=== PATIENT | male | born 1940 | race Caucasian/White ===

== ENCOUNTER 2016-09-08 08:45 | Inpatient (IN) | payer OTHER ==
[~2016-09-08] VITALS: Ht 177.8 cm; Wt 104.7 kg
[~2016-09-08 08:45] MED LIST: AMIO200T4 PO; ASPI81TA28 PO; DORZ1SOL6 OPB; HMLI SQ; INSDGI SC; METO-217 PO; SULF800T23 PO; WARF5TAB7 PO; [UNRECOGNIZED DRUG - CODE] PO
[2016-09-08] MEDS ORDERED: LEVO50TA6 PO (09:21)
[2016-09-08] MEDS ORDERED: PROC1TAB5 PO (09:21)
[2016-09-08] MEDS ORDERED: [UNRECOGNIZED DRUG - CODE] PO (09:21)
[2016-09-08] MEDS ORDERED: SODIUM CHLORIDE 0.9% 1000ML 1,000 ML IV STA (09:29)
[2016-09-08] MEDS ORDERED: ONDANSETRON INJ 2 MG/ML 2 ML VIAL IV STA (09:29)
--- NOTE | 2016-09-08 10:04 | EMERGENCY ROOM VISIT NOTE ---
History Report prepared by Aditya: Alissa Marc Under the Supervision of: Dr. Noé Nelson M.D. First contact with patient: 08:57 Chief Complaint: ILLNESS Stated Complaint: BRUISING AND LACERATION TO RT. ARM History of Present Illness The patient is a 76 year old male who presents to the Emergency Room with complaints of persistent bleeding from a scratch on his arm starting this morning. The patient scratched his arm this morning and his was concerned about the bleeding. There is also a bruise on the back of his arm that was concerning to her. He has been on Coumadin for A fib in the past, but was taken off of it 2 weeks ago for a wound vac. He has been taking Coumadin on occasion and his INR has been fluctuating between 1 - 9.1. The last time his INR was checked it was 9.1. He has nausea, vomiting, and diarrhea which he attributes to his leukemia medications. He is taking medications for his nausea. He denies any SOB, fever, or abdominal pain. Source of History: patient Onset: this morning Position: arm (right) Quality: other (bleeding) Timing: other (persistent) Associated Symptoms: + diarrhea, + nausea, + vomiting, No SOB, No abdominal pain, No fevers Review of Systems See HPI for pertinent positives & negatives. A total of 10 systems reviewed and were otherwise negative. Past Medical & Surgical Medical Problems: (1) Chronic diastolic CHF (congestive heart failure) (2) CKD (chronic kidney disease), stage III (3) CML (chronic myelocytic leukemia) (4) COPD, severe (5) Diabetes mellitus (6) HTN (hypertension) (7) SABIHA (obstructive sleep apnea) (8) Paroxysmal atrial flutter Surgical Problems: (1) H/O colonoscopy (2) H/O eye surgery (3) History of total right hip replacement Family History Cancer Diabetes mellitus Social History Smoking Status: Never Smoker Alcohol Use: none Drug Use: none Marital Status: in relationship Housing Status: lives with family Occupation Status: retired Current/Historical Medications Scheduled Amiodarone Hcl (Cordarone), 200 MG PO QD Aspirin (Aspirin Ec), 81 MG PO QAM Dorzolamide Hcl-Timolol Maleat (Cosopt Oph), 1 DROPS OPB BID Insulin Glargine (Lantus), 7 UNITS SC QAM Insulin Lispro (Humalog), 7 UNITS SQ UD Levothyroxine Sodium (Levothyroxine Sodium), 1 TAB PO DAILY Metoprolol Succinate (Toprol Xl), 50 MG PO BID Ponatinib HCl (Iclusig), 30 MG PO QAM Prochlorperazine Maleate (Compazine), 10 MG PO Q6H Sulfa/Trimethoprim (Bactrim Ds 800MG/160MG), 1 TAB PO BID Warfarin Sod (Jantoven), 2.5 MG PO QAM Allergies Coded Allergies: No Known Allergies (Verified , 09/08/16) Physical Exam Vital Signs Date Time Temp Pulse Resp B/P Pulse Ox O2 Delivery O2 Flow Rate FiO2 09/08/16 13:07 52 15 141/63 98 09/08/16 11:50 55 14 155/61 98 Room Air 09/08/16 11:30 98 Room Air 09/08/16 10:33 57 18 151/60 95 Room Air 09/08/16 09:05 95 Room Air 09/08/16 08:55 36.6 57 20 121/68 98 Room Air Physical Exam GENERAL: Patient is in no acute distress. HEENT: No acute trauma, normocephalic atraumatic, mucous membranes dry, no nasal congestion, no scleral icterus. NECK: No stridor, no adenopathy, no meningismus, trachea is midline. LUNGS: Clear to auscultation bilaterally, no wheeze, no rhonchi, breath sounds equal. HEART: 3/6 systolic murmur with regular rate and rhythm. ABDOMEN: Soft, nontender, bowel sounds positive, no hernias, no peritonitis. EXTREMITIES: Dressed wound on anterior right lower extremity without signs of cellulitis. No edema in either lower extremity. Small very superficial 1 cm laceration to the right lateral bicep, no active bleeding. Older contusion noted to the right proximal arm/bicep. NEUROLOGIC: Oriented x 3, no acute motor or sensory deficits, no focal weakness. SKIN: No rash, no jaundice, no diaphoresis. Medical Decision & Procedures Laboratory Results 09/08/16 09:40 09/08/16 09:40 Test 09/08/16 09:40 Red Blood Count 3.84 M/uL (4.7-6.1) Mean Corpuscular Volume 80.2 fL (80-100) Mean Corpuscular Hemoglobin 27.1 pg (25-34) Mean Corpuscular Hemoglobin Concent 33.8 g/dl (32-36) RDW Standard Deviation 56.1 fL (36.4-46.3) RDW Coefficient of Variation 19.3 % (11.5-14.5) Platelet Estimate DECREASED Prothrombin Time > 100.0 SECONDS Prothromb Time International Ratio > 8.0 (0.9-1.1) Activated Partial Thromboplast Time > 300.0 SECONDS Partial Thromboplastin Ratio > 11.0 Anion Gap 8.0 mmol/L (3-11) Est Creatinine Clear Calc Drug Dose 38.9 ml/min Estimated GFR () 38.8 Estimated GFR (Non- 33.5 BUN/Creatinine Ratio 16.6 (10-20) Osmolality 281 mOsm/kg (280-300) Calcium Level 7.4 mg/dl (8.5-10.1) Magnesium Level 3.1 mg/dl (1.8-2.4) Total Bilirubin 1.8 mg/dl (0.2-1) Direct Bilirubin 1.4 mg/dl (0-0.2) Aspartate Amino Transf (AST/SGOT) 28 U/L (15-37) Alanine Aminotransferase (ALT/SGPT) 25 U/L (12-78) Alkaline Phosphatase 414 U/L (45-117) Total Protein 6.0 gm/dl (6.4-8.2) Albumin 2.5 gm/dl (3.4-5.0) Laboratory results reviewed by me. Medications Administered Medications (Trade) Dose Ordered Sig/Kristopher Route Start Time Stop Time Status Last Admin Dose Admin Ondansetron HCl 4 mg 4 mg NOW STAT IV 09/08/16 09:29 09/08/16 09:31 DC 09/08/16 09:52 4 MG Sodium Chloride (Nss 1000ml) 1,000 ml @ 999 mls/hr Q1H1M STAT IV 09/08/16 09:29 09/08/16 10:29 DC 09/08/16 09:50 999 MLS/HR Phytonadione (Mephyton Tab) 10 mg NOW STAT PO 09/08/16 10:55 09/08/16 10:57 DC 09/08/16 11:49 10 MG ECG Indication: bradycardia Rate (beats per minute): 57 Rhythm: sinus bradycardia (with significant baseline artifact) Findings: nonspecific-ST abn, no acute ischemic change, no ectopy ED Course 0856: At this time the patient was evaluated by the medical student. The students findings were discussed with me. We discussed a possible treatment plan and differential diagnoses for the patient. 0926: The patient was evaluated in room B12. A complete history and physical exam was performed. 0929: NSS 1000 ml @ 999 mls/hr IV, Zofran Inj 4 mg IV. 1055: Phytonadione 10 mg PO. 1102: Upon reexamination the patient is resting comfortably. I discussed results and treatment plan with the patient. He verbalizes agreement and understanding. The patient will be evaluated for further management. 1108: I discussed the patient's case with PAMELA Torres group. The patient will be evaluated for further management. Medical Decision Differential diagnoses: dehydration, coagulopathy, anemia, electrolyte imbalance , liver failure, infection, cellulitis. There is no leukocytosis. The patient is mildly anemic but this is baseline for him. Platelet count is low in the 70s. Renal panel testing shows some dehydration/renal insufficiency. There were some mild elevations to a few of the liver enzymes. The patient had a significant coagulopathy with an INR greater than 8. EKG showed a sinus bradycardia, no acute ischemia. The patient presents with bleeding and easy bruising. His INR is quite high, he has been vomiting and having diarrhea despite medications prescribed for him at home. He did seem clinically dehydrated. I suspect the difficulty with his INR has to do with his poor appetite. I do think admission/observation is warranted. He is dehydrated, he needs his INR corrected, his platelet count will need to be watched to make sure it doesn' t drop further. Right now, he is not actively bleeding. The patient received IV saline, IV Zofran and oral vitamin K. I spoke to the patient and his family. I spoke with case management. The on-call hospitalist was consulted. Consults Time Called: 1104 Consulting Physician: [facility] Returned Call: [phone] I discussed the patient's case with her. The patient will be evaluated for further management. Impression Primary Impression: Coagulopathy Additional Impressions: Thrombocytopenia Dehydration Vomiting Scribe Attestation The scribe's documentation has been prepared under my direction and personally reviewed by me in its entirety. I confirm that the note above accurately reflects all work, treatment, procedures, and medical decision making performed by me. Departure Information Dispostion Being Evaluated By Hospitalist Referrals Lyndon Farah III, M.D. (PCP) Patient Instructions My [facility] Problem Qualifiers
[2016-09-08 10:07] LABS: BUN/CREATININE RATIO 16.6 (10-20); CALCIUM 7.4 mg/dl (8.5-10.1); CREATININE 1.9 mg/dl (0.60-1.40); POTASSIUM 4.6 mmol/L (3.5-5.1)
[2016-09-08 10:27] LABS: PROTHROMBIN TIME (PATIENT) > 100.0 SECONDS (9.0-12.0)
[2016-09-08 10:36] LABS: HEMATOCRIT 30.8 % (42-52); MEAN CELL VOLUME 80.2 fL (80-100); MEAN CORPUSCULAR HEMOGLOBIN 27.1 pg (25-34); MEAN CORPUSCULAR HGB CONC 33.8 g/dl (32-36); PLATELET COUNT 73 K/uL (130-400); PLT ESTIMATE DECREASED; RED BLOOD COUNT 3.84 M/uL (4.7-6.1); WHITE BLOOD COUNT 4.27 K/uL (4.8-10.8)
[2016-09-08 10:43] LABS: INR > 8.0 (0.9-1.1); PARTIAL THROMBOPLASTIN RATIO > 11.0
[2016-09-08] MEDS ORDERED: PHYTONADIONE 5 MG TAB PO STA (10:55)
[2016-09-08 11:30] VITALS: O2SAT 98; BMI 29.2
[2016-09-08] MEDS ORDERED: ONDANSETRON INJ 2 MG/ML 2 ML VIAL IV PRN (12:00)
[2016-09-08] MEDS ORDERED: ACETAMINOPHEN 325 MG TAB PO PRN (12:00)
[2016-09-08] MEDS ORDERED: PROMETHAZINE HCL INJ 12.5 MG in SODIUM CHLORIDE 0.9% 50ML 50 ML IV PRN (12:00)
[2016-09-08] MEDS ORDERED: DEXTROSE 50% 50 ML SYR IV PRN (12:30)
[2016-09-08] MEDS ORDERED: GLUCAGON FOR INJ 1 MG VIAL SQ PRN (12:30)
[2016-09-08] MEDS ORDERED: GLUCOSE 40% GEL 15 GM TUBE PO PRN (12:30)
[2016-09-08] MEDS ORDERED: GLUCOSE 10 TABS/TUBE PO PRN (12:30)
--- NOTE | 2016-09-08 12:32 | History and Physical ---
History & Physical Date & Time of Service: Sep 08, 2016 at 12:01 Chief Complaint: Bruising And Laceration To Rt. Arm Primary Care Physician: Lyndon Farah III, M.D. History of Present Illness Source: patient, family, clinic records, hospital records Patient seen and examined. 76 year old male with PMHx of CML on chemo po, CKD stgae 3, DM2, Afib on coumadin, and RLE diabetic wound presents to the ED complaining of laceration to right arm prior to arrival. Patient reports scratching his arm this morning and it began to bleed. It took a while to stop the bleeding with pressure but the bleeding did stop. The patient then noticed bruising on the right arm. He called the Coumadin clinic and they referred the patient to the ED. The patient has been having difficult times maintaining his INR between 2-3. He has been on Bactrim for about a month for his diabetic wound. He also is receiving chemo and has had significant nausea, vomiting and diarrhea also thought to be contributing to the poor control of INRs. Recently INR was as high as 9.1 Coumadin has been on hold for 4 days. He reports his urine looked red today. He has not been able to keep down much po but has been taking his medications. He denies fevers, chills, URI symptoms, chest pain, SOB , calf pain and edema. He follows with the wound clinic MWF. In the ED VS were stable, Hgb was 10, Platelets 73, INR >8, Crea 1.9 from baseline around 1.6, Na + 131. He received IVFs, zofran and po Vitamin K. He is resting comfortably. He will be admitted for further workup and treatment. Past Medical/Surgical History Medical Problems: (1) Chronic diastolic CHF (congestive heart failure) Status: Chronic (2) CKD (chronic kidney disease), stage III Status: Chronic (3) CML (chronic myelocytic leukemia) Status: Chronic (4) COPD, severe Permanent Comment: PFT - severe obstructive airway disease Status: Chronic (5) Diabetes mellitus Status: Chronic (6) HTN (hypertension) Status: Chronic (7) SABIHA (obstructive sleep apnea) Status: Chronic (8) Paroxysmal atrial flutter Status: Chronic Surgical Problems: (1) H/O colonoscopy Status: Chronic (2) H/O eye surgery Status: Chronic (3) History of total right hip replacement Status: Resolved Family History Cancer Diabetes mellitus Social History Smoking Status: Never Smoker Drug Use: none Marital Status: in relationship Housing status: lives with significant other Occupational Status: retired Immunizations History of Influenza Vaccine: Yes Influenza Vaccine Date: Mar 30, 2014 History of Tetanus Vaccine?: Yes Tetanus Immunization Date: Oct 01, 2012 History of Pneumococcal: Yes Pneumococcal Date: May 04, 2014 Multi-Drug Resistant Organisms History of MDRO: Yes Type of MDRO: MRSA Allergies Coded Allergies: No Known Allergies (Verified , 09/08/16) Home Medications Scheduled Amiodarone Hcl (Cordarone), 200 MG PO QD Aspirin (Aspirin Ec), 81 MG PO QAM Dorzolamide Hcl-Timolol Maleat (Cosopt Oph), 1 DROPS OPB BID Insulin Glargine (Lantus), 7 UNITS SC QAM Insulin Lispro (Humalog), 7 UNITS SQ UD Levothyroxine Sodium (Levothyroxine Sodium), 1 TAB PO DAILY Metoprolol Succinate (Toprol Xl), 50 MG PO BID Ponatinib HCl (Iclusig), 30 MG PO QAM Prochlorperazine Maleate (Compazine), 10 MG PO Q6H Sulfa/Trimethoprim (Bactrim Ds 800MG/160MG), 1 TAB PO BID Warfarin Sod (Jantoven), 2.5 MG PO QAM Review of Systems See above for pertinent positives & negatives. A total of 10 systems reviewed and were otherwise negative. Physical Exam Vital Signs Date Time Temp Pulse Resp B/P Pulse Ox O2 Delivery O2 Flow Rate FiO2 09/08/16 11:50 55 14 155/61 98 Room Air 09/08/16 10:33 57 18 151/60 95 Room Air 09/08/16 09:05 95 Room Air 09/08/16 08:55 36.6 57 20 121/68 98 Room Air General Appearance: + pertinent finding (WD/WN 76 year old male lying in bed in NAD with family at bedside ) Head: normocephalic, atraumatic Eyes: PERRL, EOMI, sclerae normal ENT: hearing grossly normal, pharynx normal Neck: supple, no JVD Respiratory/Chest: chest non-tender, lungs clear, normal breath sounds, no respiratory distress, no accessory muscle use Cardiovascular: regular rate, rhythm, no edema, no gallop, no JVD, normal peripheral pulses, + systolic murmur (+3) Abdomen/GI: normal bowel sounds, non tender, soft Extremities/Musculoskelatal: no calf tenderness, normal capillary refill, no pedal edema, + pertinent finding (small skin tear to right arm with ecchymosis to posterior right arm, right leg with dressing i/c/d) Neurologic/Psych: alert, oriented x 3, + pertinent finding (no focal deficits ) Skin: normal color, warm/dry, no rash Lymphatic: no adenopathy Diagnostics Laboratory Results Results Past 24 Hours Test 09/08/16 09:40 Range/Units White Blood Count 4.27 4.8-10.8 K/uL Red Blood Count 3.84 4.7-6.1 M/uL Hemoglobin 10.4 14.0-18.0 g/dL Hematocrit 30.8 42-52 % Mean Corpuscular Volume 80.2 80-100 fL Mean Corpuscular Hemoglobin 27.1 25-34 pg Mean Corpuscular Hemoglobin Concent 33.8 32-36 g/dl RDW Standard Deviation 56.1 36.4-46.3 fL RDW Coefficient of Variation 19.3 11.5-14.5 % Platelet Count 73 130-400 K/uL Platelet Estimate DECREASED Prothrombin Time > 100.0 9.0-12.0 SECONDS Prothromb Time International Ratio > 8.0 0.9-1.1 Activated Partial Thromboplast Time > 300.0 21.0-31.0 SECONDS Partial Thromboplastin Ratio > 11.0 Sodium Level 131 136-145 mmol/L Potassium Level 4.6 3.5-5.1 mmol/L Chloride Level 105 98-107 mmol/L Carbon Dioxide Level 18 21-32 mmol/L Anion Gap 8.0 3-11 mmol/L Blood Urea Nitrogen 32 7-18 mg/dl Creatinine 1.90 0.60-1.40 mg/dl Est Creatinine Clear Calc Drug Dose 38.9 ml/min Estimated GFR () 38.8 Estimated GFR (Non- 33.5 BUN/Creatinine Ratio 16.6 10-20 Random Glucose 131 70-99 mg/dl Calcium Level 7.4 8.5-10.1 mg/dl Magnesium Level 3.1 1.8-2.4 mg/dl Total Bilirubin 1.8 0.2-1 mg/dl Direct Bilirubin 1.4 0-0.2 mg/dl Aspartate Amino Transf (AST/SGOT) 28 15-37 U/L Alanine Aminotransferase (ALT/SGPT) 25 12-78 U/L Alkaline Phosphatase 414 45-117 U/L Total Protein 6.0 6.4-8.2 gm/dl Albumin 2.5 3.4-5.0 gm/dl EKG Sinus Bradycardia 57 BPM, LAD QTc 418 Impression Assessment and Plan 76 year old male presents to the ED complaining of bleeding laceration and bruising prior to arrival. CLINICAL DEHYDRATION -Admit to med/surg -likely secondary to nausea, vomiting, and diarrhea from chemo -IVF hydration -antiemetics -check c.diff -CBC, PRP,Mg in AM SUPRATHERAPUTIC INR -INR >8 -likely secondary to Bactrim use, poor po intake -10mg PO Vitamin K in ED -reports some hematuria this AM, check UA -monitor INR daily HYPONATREMIA -mild 131 -likely d/t dehydration -IVFs -urine lytes, osm pending -follow PRP DIABETIC RIGHT LEG WOUND -follows with Wound clinic, dressing changed by ED physician today, no surrounding cellulitis -Continue Bactrim -wound care nurse consult placed CHRONIC MYELOID LEUKEMIA -follows with Heme/onc in [place] -on Ponatinib daily THROMBOCYTOPENIA -possibly secondary to chemo -Took Aspirin this morning -will hold for now and readdress in AM following repeat CBC ATRIAL FIBRILLATION -in Sinus Rhythm -continue BB, amiodarone -hold Coumadin CKD STAGE 3 -Crea 1.9 has been running high for several months, baseline closer to 1.6 -IVF hydration IDDM -Update A1c -SSI coverage -BSG AC HS HYPOTHYROIDISM -continue Synthroid HTN -stable -continue BB CODE STATUS: LEVEL 5 DNR per my discussion with the patient DVT PROPHYLAXIS: INR currently > 8 DISPO:In my clinical judgment this beneficiary meets acute admission criteria, established by CMS, that includes being hospitalized through two midnights. Discharge planning eval Patient seen in collaboration with Dr. Sousa I have seen and examined the patient and agree with the assessment and plan as stated above. Will stop Bactrim at this time as patient is afebrile and wound appears good with minimal surrounding erythema, and patient has had >1 month of stated abx. Wound care nurse contacted. Supratherapeutic INR seecondary to abx use, given vitamin K in the ER. Trend INR in am. Cont chemotherapy for CML. Contact precautions for MRSA in wound. Clinical dehydration and labwork to support this--IVF and will reassess in am. Scratch from this morning is not currently bleeding. Otherwise, cont with plan above. Ely Sousa, DO Hospitalist Level of Care Med/Surg Resuscitation Status DO NOT RESUSCITATE VTE Prophylaxis VTE Risk Assessment Done? Y/N: Yes Risk Level: Moderate Given or contraindicated: Contraindicated Social Service Consult Cancer Patient Under [place]
[2016-09-08 14:20] VITALS: BP 149/77; PULSE 55; TEMP 36.5; O2SAT 98
[2016-09-08] MEDS: SODIUM CHLORIDE 0.9% 1000ML 1,000 ML IV SCH ×2 (14:50→21:52)
[2016-09-08 16:10] VITALS: O2SAT 98
[2016-09-08 16:38] LABS: MANUAL MICROSCOPIC REQUIRED? NO; REVIEW REQ? YES; URINE APPEARANCE TURBID (CLEAR); URINE COLOR DK YELLOW; URINE NITRITE POS (NEG); UROBILINOGEN NEG (NEG); ZZUR CULT IF INDIC CLEAN CATCH NO
[2016-09-08 16:40] LABS: URINE BILIRUBIN NEG (NEG)
[2016-09-08] MEDS: INSULIN ASPART 100 UNITS/ML 3 ML PEN SC SCH ×2 (18:12→21:00)
[2016-09-08 19:27] VITALS: BP 150/78; PULSE 52; TEMP 36.3; O2SAT 97
[2016-09-08] MEDS ORDERED: SULFAMETHOXAZOLE/TRIMETHOPRIM DS 800/160MG TAB PO SCH (20:00)
[2016-09-08] MEDS: DORZOLAMIDE/TIMOLOL 22.3/6.8MG/ML 10 ML BTL OPB SCH (21:53)
[2016-09-08] MEDS: METOPROLOL SUCC 50MG EXT REL TAB PO SCH (21:53)
[2016-09-08 21:54] VITALS: PULSE 64
[2016-09-08 22:12] VITALS: BP 150/78; PULSE 56; TEMP 36.8; O2SAT 96
[2016-09-09] VITALS (8 sets, daily range): BP systolic 122–180; BP diastolic 63–84; PULSE 58–71; TEMP 36.2–36.8; O2SAT 94–100; BMI 30.5
[2016-09-09] MEDS: LEVOTHYROXINE 50 MCG TAB PO SCH (05:26)
[2016-09-09] MEDS: SODIUM CHLORIDE 0.9% 1000ML 1,000 ML IV SCH ×3 (05:27→22:36)
[2016-09-09 07:33] LABS: HEMATOCRIT 32.5 % (42-52); MEAN CELL VOLUME 82.5 fL (80-100); MEAN CORPUSCULAR HEMOGLOBIN 26.9 pg (25-34); MEAN CORPUSCULAR HGB CONC 32.6 g/dl (32-36); RED BLOOD COUNT 3.94 M/uL (4.7-6.1); WHITE BLOOD COUNT 3.62 K/uL (4.8-10.8)
[2016-09-09 07:45] LABS: MEAN PLATELET VOLUME 10.7 fL (7.4-10.4); PLATELET COUNT 78 K/uL (130-400)
[2016-09-09 07:49] LABS: PARTIAL THROMBOPLASTIN RATIO 3.2; PROTHROMBIN TIME (PATIENT) 33.3 SECONDS (9.0-12.0)
[2016-09-09 07:56] LABS: COMPLETE YES; EOS % 5.2 %; IG% 0.6 %; LARGE PLATELETS 1+; LYMPH % 22.9 %; LYMPH ABS # 0.83 K/uL (1.2-3.4); MONO % 9.4 %; NEUT % 61.9 %
[2016-09-09 08:02] LABS: BUN/CREATININE RATIO 16.9 (10-20); CALCIUM 7.4 mg/dl (8.5-10.1); CREATININE 1.7 mg/dl (0.60-1.40); MAGNESIUM 2.8 mg/dl (1.8-2.4); POTASSIUM 4.6 mmol/L (3.5-5.1)
[2016-09-09 08:13] LABS: ALB/GLOB RATIO 0.7 (0.9-2)
[2016-09-09] MEDS: DORZOLAMIDE/TIMOLOL 22.3/6.8MG/ML 10 ML BTL OPB SCH ×2 (09:14→21:35)
[2016-09-09] MEDS: METOPROLOL SUCC 50MG EXT REL TAB PO SCH ×2 (09:15→21:35)
[2016-09-09] MEDS: INSULIN ASPART 100 UNITS/ML 3 ML PEN SC SCH ×4 (09:16→21:35)
[2016-09-09] MEDS: AMIODARONE 200 MG TAB PO SCH (09:16)
[2016-09-09] MEDS: INSULIN GLARGINE SOLOSTAR 100 UNITS/ML 3 ML PEN SC SCH (09:20)
[2016-09-09 09:29] LABS: ESTIMATED AVERAGE GLUCOSE 114 mg/dl; HA1C FLAG Normal (Normal)
[2016-09-09] MEDS: ICLUSIG PO SCH (10:56)
[2016-09-09] MEDS: BOOST VANILLA PO SCH ×4 (13:37→17:39)
--- NOTE | 2016-09-09 16:12 | Progress Note ---
Internal Med Progress Note Date of Service: Sep 09, 2016. Provider Documentation: SUBJECTIVE: Patient is lying in his bed and does not seem to be in acute distress. Still has intermittent nausea but no vomiting. Some epigastric discomfort. OBJECTIVE: Vital Signs-as noted below Examination: General Appearance: WD/WN 76 year old male lying in bed in NAD with at bedside. Head: normocephalic, atraumatic Eyes: PERRL, EOMI, sclerae normal ENT: hearing grossly normal, pharynx normal Neck: supple, midline trachea, no JVD Respiratory/Chest: chest non-tender, lungs clear, normal breath sounds, no respiratory distress, no accessory muscle use Cardiovascular: regular rate, rhythm, no edema, no gallop, no JVD, normal peripheral pulses, 3+ systolic murmur Abdomen/GI: normal bowel sounds,some discomfort on palpating epigastrium, non tender, soft Extremities/Musculoskeletal: no calf tenderness, normal capillary refill, no pedal edema, small skin tear to right arm with ecchymosis to posterior right arm , right leg with dressing. Neurologic/Psych: alert, oriented x 3, No focal deficits Skin: normal color, warm/dry, no rash Lymphatic: no adenopathy Lab data as noted below. ASSESSMENT & PLAN: Acute Kidney Injury on CKD Stage III: Resolving. Caused by dehydration secondary to nausea, vomiting, and diarrhea from chemo Baseline Creatinine around 1.6 -Continue IVF hydration -antiemetics as needed -C.diff is negative -Follow electrolytes. -Started Full liquid diet -Avoid any Nephrotoxin. Supra-therapeutic INR: INR >8 upon admission. Likely secondary to Bactrim use, poor oral intake. Resolving now. -10mg PO Vitamin K given in ED -Monitor INR daily Hyponatremia: Resolving. Likely due to poor intake. -Continue IVFs Thrombocytopenia: Likely secondary to chemo -Holding Aspirin for now Diabetic Right Leg Wound: Follows with Wound clinic, dressing changed by ED physician today, no surrounding cellulitis -Stopped Bactrim -Wound care nurse consult placed Chronic Myeloid Leukemia: Follows with Heme/onc in [place] -on Ponatinib daily History Atrial Fibrillation: In NSR now. -Continue B-Lani, Amiodarone -Hold Coumadin Insulin Dependent Diabetes: Stable. HbA1c is 5.6. -SSI coverage -BSG AC HS Hypothyroidism: Continue Synthroid History Hypertension: Stable -continue home medications. Code Status: LEVEL 5 DNR per my discussion with the patient upon admission. DVT Prophylaxis: Elevated INR Disposition: Discharge home once is clinically stable. Vital Signs: Date Time Temp Pulse Resp B/P Pulse Ox O2 Delivery O2 Flow Rate FiO2 09/09/16 11:52 36.8 58 18 180/81 99 09/09/16 08:45 Room Air 09/09/16 07:21 36.2 62 18 140/73 96 Room Air 09/09/16 05:27 36.8 62 20 156/84 96 Room Air 09/09/16 00:30 98 Room Air 09/08/16 22:12 36.8 56 20 150/78 96 Room Air 09/08/16 21:54 64 09/08/16 19:27 36.3 52 20 150/78 97 Room Air Lab Results: Results Past 24 Hours Test 09/08/16 20:54 09/09/16 06:51 09/09/16 07:41 09/09/16 11:49 Range/Units Bedside Glucose 125 102 143 70-99 mg/dl White Blood Count 3.62 4.8-10.8 K/uL Red Blood Count 3.94 4.7-6.1 M/uL Hemoglobin 10.6 14.0-18.0 g/dL Hematocrit 32.5 42-52 % Mean Corpuscular Volume 82.5 80-100 fL Mean Corpuscular Hemoglobin 26.9 25-34 pg Mean Corpuscular Hemoglobin Concent 32.6 32-36 g/dl Platelet Count 78 130-400 K/uL Mean Platelet Volume 10.7 7.4-10.4 fL Neutrophils (%) (Auto) 61.9 % Lymphocytes (%) (Auto) 22.9 % Monocytes (%) (Auto) 9.4 % Eosinophils (%) (Auto) 5.2 % Basophils (%) (Auto) 0.0 % Neutrophils # (Auto) 2.24 1.4-6.5 K/uL Lymphocytes # (Auto) 0.83 1.2-3.4 K/uL Monocytes # (Auto) 0.34 0.11-0.59 K/uL Eosinophils # (Auto) 0.19 0-0.5 K/uL Basophils # (Auto) 0.00 0-0.2 K/uL RDW Standard Deviation 59.1 36.4-46.3 fL RDW Coefficient of Variation 19.7 11.5-14.5 % Immature Granulocyte % (Auto) 0.6 % Immature Granulocyte # (Auto) 0.02 0.00-0.02 K/uL Large Platelets 1+ Prothrombin Time 33.3 9.0-12.0 SECONDS Prothromb Time International Ratio 3.0 0.9-1.1 Activated Partial Thromboplast Time 82.6 21.0-31.0 SECONDS Partial Thromboplastin Ratio 3.2 Sodium Level 135 136-145 mmol/L Potassium Level 4.6 3.5-5.1 mmol/L Chloride Level 108 98-107 mmol/L Carbon Dioxide Level 17 21-32 mmol/L Anion Gap 10.0 3-11 mmol/L Blood Urea Nitrogen 29 7-18 mg/dl Creatinine 1.70 0.60-1.40 mg/dl Est Creatinine Clear Calc Drug Dose 43.0 ml/min Estimated GFR () 44.4 Estimated GFR (Non- 38.3 BUN/Creatinine Ratio 16.9 10-20 Random Glucose 105 70-99 mg/dl Estimated Average Glucose 114 mg/dl Hemoglobin A1c 5.6 4.5-5.6 % Calcium Level 7.4 8.5-10.1 mg/dl Magnesium Level 2.8 1.8-2.4 mg/dl Total Bilirubin 3.6 0.2-1 mg/dl Aspartate Amino Transf (AST/SGOT) 27 15-37 U/L Alanine Aminotransferase (ALT/SGPT) 23 12-78 U/L Alkaline Phosphatase 368 45-117 U/L Total Protein 5.8 6.4-8.2 gm/dl Albumin 2.3 3.4-5.0 gm/dl Globulin 3.5 2.5-4.0 gm/dl Albumin/Globulin Ratio 0.7 0.9-2 Microbiology Results 09/09/16 C.difficile Toxin B Gene (PCR) - Final, Complete No C. difficile toxin B gene detected
[2016-09-10] VITALS (7 sets, daily range): BP systolic 122–156; BP diastolic 68–78; PULSE 62–91; TEMP 36.3–37.3; O2SAT 96–99; Ht 177.8 cm; Wt 104.7 kg
[2016-09-10 05:49] LABS: HEMATOCRIT 28.2 % (42-52); MEAN CELL VOLUME 80.1 fL (80-100); MEAN CORPUSCULAR HGB CONC 33.7 g/dl (32-36); RED BLOOD COUNT 3.52 M/uL (4.7-6.1); WHITE BLOOD COUNT 2.85 K/uL (4.8-10.8)
[2016-09-10 06:05] LABS: MEAN PLATELET VOLUME 10.4 fL (7.4-10.4); PLATELET COUNT 69 K/uL (130-400)
[2016-09-10 06:09] LABS: PROTHROMBIN TIME (PATIENT) 49.6 SECONDS (9.0-12.0)
[2016-09-10] MEDS: LEVOTHYROXINE 50 MCG TAB PO SCH (06:15)
[2016-09-10 06:23] LABS: BUN/CREATININE RATIO 15.5 (10-20); CALCIUM 7.1 mg/dl (8.5-10.1); CREATININE 1.7 mg/dl (0.60-1.40); POTASSIUM 4.3 mmol/L (3.5-5.1)
[2016-09-10 06:36] LABS: INR 4.4 (0.9-1.1)
[2016-09-10 06:49] LABS: COMPLETE YES; EOSINOPHIL % 4.4 %; LARGE GRANULAR LYMPH ABSOLUTE 0.88 K/uL; LYMPH ABS # 0.25 K/uL (1.2-3.4); LYMPHOCYTE % 8.8 %; NEUTROPHILS % 37.2 %
[2016-09-10] MEDS: BOOST VANILLA PO SCH ×6 (08:31→17:35)
[2016-09-10] MEDS: DORZOLAMIDE/TIMOLOL 22.3/6.8MG/ML 10 ML BTL OPB SCH ×2 (08:31→20:31)
[2016-09-10] MEDS: ICLUSIG PO SCH (08:32)
[2016-09-10] MEDS: INSULIN ASPART 100 UNITS/ML 3 ML PEN SC SCH ×4 (08:32→20:33)
[2016-09-10] MEDS: METOPROLOL SUCC 50MG EXT REL TAB PO SCH ×2 (08:32→20:32)
[2016-09-10] MEDS: AMIODARONE 200 MG TAB PO SCH (08:32)
[2016-09-10] MEDS: SODIUM CHLORIDE 0.9% 1000ML 1,000 ML IV SCH ×2 (08:33→20:33)
[2016-09-10] MEDS: INSULIN GLARGINE SOLOSTAR 100 UNITS/ML 3 ML PEN SC SCH (08:34)
[2016-09-10] MEDS ORDERED: NURSING DECISION MEDICATION ORDER SCH (11:45)
[2016-09-10] MEDS ORDERED: EUCERIN CR 120 GM JAR EXT PRN (12:00)
[2016-09-10] MEDS ORDERED: PHYTONADIONE 5 MG TAB PO STA (13:00)
--- NOTE | 2016-09-10 13:03 | Progress Note ---
Internal Med Progress Note Date of Service: Sep 10, 2016. Provider Documentation: SUBJECTIVE: Patient is lying in his bed and does not seem to be in acute distress. Still has intermittent nausea but no vomiting. Epigastric discomfort has resolved. Tolerating full liquid diet so far. No other new change or complaint. OBJECTIVE: Vital Signs-as noted below Examination: General Appearance: WD/WN 76 year old male lying in bed in NAD with at bedside. Head: normocephalic, atraumatic Eyes: PERRL, EOMI, sclerae normal ENT: hearing grossly normal, pharynx normal Neck: supple, midline trachea, no JVD Respiratory/Chest: chest non-tender, lungs clear, normal breath sounds, no respiratory distress, no accessory muscle use Cardiovascular: regular rate, rhythm, no edema, no gallop, no JVD, normal peripheral pulses, 3+ systolic murmur Abdomen/GI: normal bowel sounds,some discomfort on palpating epigastrium, non tender, soft Extremities/Musculoskeletal: no calf tenderness, normal capillary refill, no pedal edema, small skin tear to right arm with ecchymosis to posterior right arm , right leg with dressing. Neurologic/Psych: alert, oriented x 3, No focal deficits Skin: normal color, warm/dry, no rash Lymphatic: no adenopathy Lab data as noted below. ASSESSMENT & PLAN: Acute Kidney Injury on CKD Stage III: Resolving. Caused by dehydration secondary to nausea, vomiting, and diarrhea from chemo Baseline Creatinine around 1.6 -Continue IVF hydration -antiemetics as needed -C.diff is negative -Follow electrolytes. -Started Full liquid diet -Avoid any Nephrotoxin. Supra-therapeutic INR: INR >8 upon admission. Likely secondary to Bactrim use, poor oral intake. Resolving now. -10mg PO Vitamin K given in ED and ordered Vitamin K 2.5 mg today. -Monitor INR daily Hyponatremia: Resolving. Likely due to poor intake. -Continue IVFs Thrombocytopenia: Likely secondary to chemo -Holding Aspirin for now Diabetic Right Leg Wound: Follows with Wound clinic, dressing changed by ED physician today, no surrounding cellulitis -Stopped Bactrim -Wound care nurse consult placed Chronic Myeloid Leukemia: Follows with Heme/onc in [place] -on Ponatinib daily History Atrial Fibrillation: In NSR now. -Continue B-Lani, Amiodarone -Hold Coumadin Insulin Dependent Diabetes: Stable. HbA1c is 5.6. -SSI coverage -BSG AC HS Hypothyroidism: Continue Synthroid History Hypertension: Stable -continue home medications. Code Status: LEVEL 5 DNR per my discussion with the patient upon admission. DVT Prophylaxis: Elevated INR Disposition: Discharge home once is clinically stable. Vital Signs: Date Time Temp Pulse Resp B/P Pulse Ox O2 Delivery O2 Flow Rate FiO2 09/10/16 12:06 36.8 62 20 147/70 99 Room Air 09/10/16 10:20 68 98 09/10/16 08:30 Room Air 09/10/16 07:23 36.8 64 18 128/78 97 Room Air 09/10/16 04:05 36.5 64 20 122/68 98 Room Air 09/09/16 23:45 Room Air 09/09/16 23:38 36.6 71 16 122/72 100 Room Air 09/09/16 19:24 36.2 68 18 129/69 98 Room Air 09/09/16 16:42 36.4 58 1 135/63 98 09/09/16 16:00 94 Room Air Lab Results: Results Past 24 Hours Test 09/09/16 16:47 09/09/16 20:03 09/10/16 05:25 09/10/16 08:07 Range/Units Bedside Glucose 164 131 123 70-99 mg/dl White Blood Count 2.85 4.8-10.8 K/uL Red Blood Count 3.52 4.7-6.1 M/uL Hemoglobin 9.5 14.0-18.0 g/dL Hematocrit 28.2 42-52 % Mean Corpuscular Volume 80.1 80-100 fL Mean Corpuscular Hemoglobin 27.0 25-34 pg Mean Corpuscular Hemoglobin Concent 33.7 32-36 g/dl Platelet Count 69 130-400 K/uL Mean Platelet Volume 10.4 7.4-10.4 fL RDW Standard Deviation 57.1 36.4-46.3 fL RDW Coefficient of Variation 19.7 11.5-14.5 % Neutrophils % (Manual) 37.2 % Lymphocytes % (Manual) 8.8 % Monocytes % (Manual) 18.6 % Eosinophils % (Manual) 4.4 % Neutrophils # (Manual) 1.06 1.4-6.5 K/uL Total Absolute Neutrophils 1.06 1.4-6.5 K/uL Lymphocytes # (Manual) 0.25 1.2-3.4 K/uL Total Absolute Lymphocytes 1.13 1.2-3.4 K/uL Monocytes # (Manual) 0.53 0.11-0.59 K/uL Eosinophils # (Manual) 0.13 0-0.5 K/uL Percent Large Granular Lymphocytes 31.0 % Absolute Large Granular Lymphocytes 0.88 K/uL Prothrombin Time 49.6 9.0-12.0 SECONDS Prothromb Time International Ratio 4.4 0.9-1.1 Sodium Level 135 136-145 mmol/L Potassium Level 4.3 3.5-5.1 mmol/L Chloride Level 110 98-107 mmol/L Carbon Dioxide Level 16 21-32 mmol/L Anion Gap 9.0 3-11 mmol/L Blood Urea Nitrogen 26 7-18 mg/dl Creatinine 1.70 0.60-1.40 mg/dl Est Creatinine Clear Calc Drug Dose 43.0 ml/min Estimated GFR () 44.4 Estimated GFR (Non- 38.3 BUN/Creatinine Ratio 15.5 10-20 Random Glucose 124 70-99 mg/dl Calcium Level 7.1 8.5-10.1 mg/dl Test 09/10/16 11:50 Range/Units Bedside Glucose 154 70-99 mg/dl
[2016-09-11] VITALS (17 sets, daily range): BP systolic 98–187; BP diastolic 50–94; PULSE 75–106; TEMP 36.4–36.8; O2SAT 87–100
--- NOTE | 2016-09-11 01:51 | Progress Note ---
Progress Note Date of Service Sep 11, 2016. Progress Note [employer] ATTENDING NOTE : responded to [facility] pt vomited few minuted back , then became hypoxic and unresponsive upon my arrival , pt was waking up -able to answer questions -says feels lousy , still nauseas coarse breathing sound hypoxic in RA in 80's improved to high 90's after 2 L 02 nC BSG 110 vitals stable Lungs -auscultation-diffuse rales in all lungs arnett pt continues to cough with audible crackles concern for aspiration /vasovagal episode leading to pre syncope due to vomiting stat portable Cxray ordered started on IV Zosyn ordered to transfer to PCU for close monitoring pt had one bowel movement -with dark red stool possible GI bleed due to coagulopathy NPO Protonix GTT stool for heme occult GI eval requested will update AM provider
[2016-09-11] MEDS ORDERED: PIPERACILL/TAZOBAC IV 3.375 GM in DEXTROSE 5% 100ML IV STA (01:54)
[2016-09-11] MEDS ORDERED: PIPERACILL/TAZOBAC IV 3.375 GM in DEXTROSE 5% 100ML 100 ML IV SCH (02:00)
[2016-09-11] MEDS ORDERED: PIPERACILL/TAZOBAC CONSULT ACTIVE PRN (02:00)
[2016-09-11] MEDS ORDERED: SODIUM CHLORIDE 0.9% 1000ML 1,000 ML IV SCH (02:00)
[2016-09-11] MEDS ORDERED: PANTOprazole INJ 80 MG in DEXTROSE 5% 100ML IV STA (02:01)
[2016-09-11 02:14] LABS: HEMATOCRIT 29.2 % (42-52); MEAN CELL VOLUME 81.6 fL (80-100); MEAN CORPUSCULAR HEMOGLOBIN 27.7 pg (25-34); RED BLOOD COUNT 3.58 M/uL (4.7-6.1); WHITE BLOOD COUNT 3.94 K/uL (4.8-10.8)
[2016-09-11 02:25] LABS: PROTHROMBIN TIME (PATIENT) > 100.0 SECONDS (9.0-12.0)
[2016-09-11 02:33] LABS: ARTERIAL BLD GAS O2 SATURATION 89.8 % (90-95); ARTERIAL BLOOD GAS BASE EXCESS -13.2 mEq/L (-9-1.8); ARTERIAL BLOOD GAS HCO3 12 mmol/L (19-24); ARTERIAL BLOOD GAS PO2 66 mm/Hg (80-95); ARTERIAL BLOOD GAS pH 7.28 (7.35-7.45)
[2016-09-11 02:34] LABS: ALLEN TEST POS (POS); O2 ADMINISTRATION 4 L
[2016-09-11 02:36] LABS: BUN/CREATININE RATIO 13.6 (10-20); CALCIUM 7.3 mg/dl (8.5-10.1); POTASSIUM 4.5 mmol/L (3.5-5.1)
[2016-09-11 02:42] LABS: MANUAL MICROSCOPIC REQUIRED? YES; REVIEW REQ? NO; SULFASALICYLIC ACID NEG (NEG); URINE APPEARANCE SLIGHTLY CLOUDY (CLEAR); URINE COLOR BROWN
[2016-09-11 02:49] LABS: URINE BACTERIA NEG (NEG); URINE RBC 0-4 /hpf (0-4)
[2016-09-11 02:50] LABS: ZZURINE CULT IF INDIC CATH YES
[2016-09-11 02:53] LABS: CKMB/CK RATIO 2.2 (0-3.0)
[2016-09-11 02:54] LABS: INR > 8.0 (0.9-1.1)
[2016-09-11 02:55] LABS: MEAN CORPUSCULAR HGB CONC 33.9 g/dl (32-36); PLATELET COUNT 94 K/uL (130-400); PLT ESTIMATE DECREASED
[2016-09-11] MEDS ORDERED: PHYTONADIONE 5 MG TAB PO STA (03:09)
[2016-09-11] MEDS: PANTOprazole INJ 40 MG in DEXTROSE 5% 100ML IV SCH ×5 (03:16→21:05)
[2016-09-11] MEDS: PIPERACILL/TAZOBAC IV 3.375 GM in DEXTROSE 5% 100ML IV SCH ×3 (05:36→21:05)
[2016-09-11 06:27] LABS: HEMATOCRIT 27.5 % (42-52)
[2016-09-11 06:44] LABS: PROTHROMBIN TIME (PATIENT) > 100.0 SECONDS (9.0-12.0)
[2016-09-11 06:47] LABS: INR > 8.0 (0.9-1.1)
--- NOTE | 2016-09-11 07:05 | Clinical Documentation Query ---
Dr. GAVIRIA [facility] : CLINICAL DOCUMENTATION QUERY Patient is a 76 year old male admitted with a supratherapeutic INR in the setting of Bactrim use and SYDNEY on CKD stage 3. Noted leukopenia, anemia, and thrombocytopenia. Thrombocytopenia explicitly linked to chemotherapy. As appropriate, consider clarification as suggested below to capture the severity of illness associated with this important clinical diagnosis. Thank you. In your clinical opinion is this patient being managed for: ( X ) Antineoplastic chemotherapy induced pancytopenia ( ) Other explanation of clinical findings (Please Explain) ( ) Unable to determine (Please Define) ( ) Need to Discuss ( ) Not Agree The medical record reflects the following clinical findings, treatment, and risk factors. Clinical Indicators: As above Treatment: Serial hematologic monitoring Risk Factors: Daily Ponatinib Please clarify and document your clinical opinion in the progress notes and discharge summary. Terms such as "probable", "suspected", "likely", "questionable", "possible", or "still to be ruled out" are acceptable. IF IN AGREEMENT, YOU MUST DOCUMENT ABOVE DIAGNOSTIC STATEMENT IN DAILY PROGRESS NOTES AND DISCHARGE SUMMARY. This document is not part of the patient's record. Thank You, Juan Luis Espinoza, RN [phone]
--- NOTE | 2016-09-11 07:12 | DIAGNOSTIC IMAGING REPORT ---
CHEST ONE VIEW PORTABLE CLINICAL HISTORY: Altered mental status. COMPARISON STUDY: Chest radiograph October 17, 2015. FINDINGS: Left lung volume loss is noted. A left pleural effusion is unchanged since prior exam. This could reflect a chronic pleural effusion. Hazy and linear left lung opacity may reflect atelectasis. Cardiac size is at the upper limits of normal. There is no evidence of pulmonary edema. IMPRESSION: 1. No change in appearance of the chest. 2. Stable small left pleural effusion which may be chronic. Left lung volume loss with associated opacities which may reflect atelectasis. Electronically signed by: Pipo Bird M.D. 09/11/2016 7:10 AM Dictated Date/Time: 09/11/2016 7:07 AM
[2016-09-11 07:19] LABS: BUN/CREATININE RATIO 14.1 (10-20); CALCIUM 7.2 mg/dl (8.5-10.1); CREATININE 2.1 mg/dl (0.60-1.40); POTASSIUM 4.6 mmol/L (3.5-5.1)
--- NOTE | 2016-09-11 08:39 | Gastrointestinal Consultation ---
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 GI is consulted for one episode of BRBPR yesterday. Pt is at bedside and is providing history. She reports her started scratching his arm and that it had started bleeding and was having difficulty controlling the bleeding. In the ED, INR was found to be >8. He has been taking his Coumadin every other day or holding completely due to elevated INR as an outpatient. Pt was seen and evaluated this AM. He appears lethargic, falling asleep during exam. He has generalized abdominal pain. Pain is constant, sharp. Worse with coughing, touch and movement. He is also nauseated. No vomiting today. Denies fever, chills, chest pain, SOB, black/bloody stools/emesis. Colonoscopy 11/15/15: Preparation of the colon was poor. Internal hemorrhoids. The examined portion of the ileum was normal. Diverticulosis in the sigmoid colon. The examination was otherwise normal on direct and retroflexion views. No specimens collected. Past Medical/Surgical History Medical Problems: (1) Coagulopathy Status: Acute (2) Dehydration Status: Acute (3) Pneumonia Status: Acute (4) Sepsis Status: Acute (5) Thrombocytopenia Status: Acute (6) Vomiting Status: Acute Family History Cancer Diabetes mellitus Social History Smoking Status: Never Smoker Alcohol Use: none Drug Use: none Marital Status: in relationship Housing Status: lives with family Occupation Status: retired Allergies Coded Allergies: No Known Allergies (Verified , 09/08/16) Current Medications Home Meds and Scripts Medications Dose Route/Sig Max Daily Dose Days Date Category Dose Instructions Levothyroxine Sodium 50 Mcg Tab 1 Tab PO DAILY 09/08/16 Reported Compazine (Prochlorperazine Maleate) 10 Mg Tab 10 Mg PO Q6H 09/08/16 Reported Iclusig (Ponatinib HCl) 15 Mg Tab 30 Mg PO QAM 09/08/16 Reported Bactrim Ds 800MG/160MG (Trimethoprim/Sulfamethoxazole) Tab 1 Tab PO BID 14 09/04/16 Reported Toprol Xl (Metoprolol Succinate) 50 Mg Tabcr 50 Mg PO BID 11/10/15 Reported Cordarone (Amiodarone Hcl) 200 Mg Tab 200 Mg PO QD 11/10/15 Reported Humalog (Insulin Human Lispro) Inj 7 Units SQ UD 10/15/15 Reported 10-15 units SQ with each meal as directed. Jantoven (Warfarin Sodium) 5 Mg Tab 2.5 Mg PO QAM 10/15/15 Reported Cosopt Oph (Dorzolamide Hcl-Timolol Maleat) 1 Mel Mel 1 Drops OPB BID 04/14/15 Reported Lantus (Insulin Glargine) Vial 7 Units SC QAM 03/05/15 Reported Aspirin Ec (Aspirin) 81 Mg Tab 81 Mg PO QAM 03/05/15 Reported Review of Systems Constitutional: No chills, No fever Respiratory: No cough, No shortness of breath Cardiac: No chest pain, No edema Abdomen: + GI bleeding (pt does not recall episode of BRBPR, pt and deny any additional episodes or any BMs), + nausea, + pain, No constipation, No diarrhea, No vomiting Skin: + bleeding, + jaundice Physical Exam Date Time Temp Pulse Resp B/P Pulse Ox O2 Delivery O2 Flow Rate FiO2 09/11/16 08:19 36.5 83 27 98/70 99 4.0 09/11/16 04:00 Nasal Cannula 4.0 09/11/16 02:15 36.6 90 24 137/94 96 Nasal Cannula 4.0 09/11/16 01:45 90 97 Nasal Cannula 4.0 09/11/16 01:40 106 12 187/89 87 Room Air 09/11/16 00:00 Room Air 09/10/16 23:08 37.3 91 17 139/77 96 Room Air 09/10/16 19:03 36.3 90 17 141/78 98 Room Air 09/10/16 16:59 36.4 62 18 156/77 98 Room Air 09/10/16 16:00 Room Air 09/10/16 12:06 36.8 62 20 147/70 99 Room Air 09/10/16 10:20 68 98 General Appearance: no apparent distress Eyes: PERRL ENT: hearing grossly normal Neck: supple, trachea midline Respiratory/Chest: no respiratory distress, no accessory muscle use, + decreased breath sounds, + crackles Cardiovascular: regular rate, rhythm, no edema, no JVD, + systolic murmur Abdomen: soft, no organomegaly, no pulsatile mass, + tenderness (generalized tenderness, worse in epigastric and RUQ) Neurologic/Psych: alert, oriented x 3 Skin: warm/dry, no rash, + jaundice, + pertinent finding (RLQ wound, dressed) Laboratory Results Last 24 Hours Test 09/10/16 11:50 09/10/16 17:10 09/10/16 20:23 09/11/16 01:43 Bedside Glucose 154 mg/dl 132 mg/dl 124 mg/dl 117 mg/dl Test 09/11/16 01:50 09/11/16 01:56 09/11/16 02:10 09/11/16 02:13 Creatine Kinase MB Ratio 2.2 White Blood Count 3.94 K/uL Red Blood Count 3.58 M/uL Hemoglobin 9.9 g/dL Hematocrit 29.2 % Mean Corpuscular Volume 81.6 fL Mean Corpuscular Hemoglobin 27.7 pg Mean Corpuscular Hemoglobin Concent 33.9 g/dl RDW Standard Deviation 59.3 fL RDW Coefficient of Variation 20.0 % Platelet Count 94 K/uL Nucleated RBC Absolute Count (auto) 0.03 K/uL Nucleated Red Blood Cells % 0.7 % Platelet Estimate DECREASED Prothrombin Time > 100.0 SECONDS Prothromb Time International Ratio > 8.0 Arterial Blood pH 7.28 Arterial Blood Partial Pressure CO2 27 mmHg Arterial Blood Partial Pressure O2 66 mm/Hg Arterial Blood HCO3 12 mmol/L Arterial Blood Oxygen Saturation 89.8 % Arterial Blood Base Excess -13.2 mEq/L Arterial Blood Gas Delivery 4 L Ja Test POS Sodium Level 133 mmol/L Potassium Level 4.5 mmol/L Chloride Level 106 mmol/L Carbon Dioxide Level 17 mmol/L Anion Gap 10.0 mmol/L Blood Urea Nitrogen 27 mg/dl Creatinine 2.00 mg/dl Est Creatinine Clear Calc Drug Dose 36.6 ml/min Estimated GFR () 36.5 Estimated GFR (Non- 31.5 BUN/Creatinine Ratio 13.6 Random Glucose 114 mg/dl Calcium Level 7.3 mg/dl Total Creatine Kinase 68 U/L Creatine Kinase MB 1.5 ng/ml Troponin I 0.027 ng/ml Stool Occult Blood POSITIVE Urine Color BROWN Urine Appearance SLIGHTLY CLOUDY Urine pH Urine Specific [place] Urine Protein NEG Urine Glucose (UA) Urine Ketones Urine Occult Blood Urine Nitrite Urine Bilirubin Urine Urobilinogen Urine Leukocyte Esterase Urine RBC 0-4 /hpf Urine WBC 5-10 /hpf Urine Epithelial Cells 5-10 /lpf Urine Bacteria NEG Urine Hyaline Casts 1-5 /lpf Test 09/11/16 02:53 09/11/16 05:50 09/11/16 06:35 Lactic Acid Level 1.9 mmol/L Hemoglobin 9.3 g/dL Hematocrit 27.5 % Prothrombin Time > 100.0 SECONDS Prothromb Time International Ratio > 8.0 Sodium Level 132 mmol/L Potassium Level 4.6 mmol/L Chloride Level 106 mmol/L Carbon Dioxide Level 15 mmol/L Anion Gap 11.0 mmol/L Blood Urea Nitrogen 30 mg/dl Creatinine 2.10 mg/dl Est Creatinine Clear Calc Drug Dose 36.1 ml/min Estimated GFR () 34.4 Estimated GFR (Non- 29.7 BUN/Creatinine Ratio 14.1 Random Glucose 149 mg/dl Calcium Level 7.2 mg/dl Bedside Glucose 144 mg/dl Impression Patient is a 76 year old male with generalized epigastric pain, nausea, elevated LFTS and one episode of BRBPR in the setting of Coumadin toxicity. Differentials include diverticular bleed, internal/external hemorrhoids, colon CA, ischemic colitis, upper GI bleed etc Plan Hold Coumadin Reverse INR with Vit K IV PPI Stool culture and stool for c.diff it loose stools develop RUQ US for upward trending TB lipase/amylase Trend H&H Transfuse as needed Monitor stools GI ok for diet as tolerated No urgent role of any GI procedures. GI to follow peripherally, please don't hesitate to call with questions. I have seen, examined and agree with the plan as outlined by GLADIS Jaime as above. -exam reveals soft abd -Very concerned in Re given coagulopathy that may have DIC. Also has a significant metabolic acidosis with attempted respiratory compensation. -Given abdominal pain, consider CT of abdomen -Discuss goals of care, patient is DNR -No evidence of GI bleeding so no role for endoscopy as no patient provided or nursing of GI bleeding
[2016-09-11] MEDS: ICLUSIG PO SCH (09:00)
--- NOTE | 2016-09-11 09:05 | Progress Note ---
Internal Med Progress Note Date of Service: Sep 11, 2016. Provider Documentation: SUBJECTIVE: Patient is lying in his bed and does not seem to be in some distress. Still has intermittent nausea but no vomiting.Continuous hiccups. Noted events of overnight. Is NPO now. No other new change or complaint. OBJECTIVE: Vital Signs-as noted below Examination: General Appearance: WD/WN 76 year old male lying in bed in NAD with at bedside. Head: normocephalic, atraumatic Eyes: PERRL, EOMI, sclerae normal ENT: hearing grossly normal, pharynx normal Neck: supple, midline trachea, no JVD Respiratory/Chest: chest non-tender, B/L Moderate air entry, Decreased BS at Left lung base, no accessory muscle use Cardiovascular: regular rate, rhythm, no edema, no gallop, no JVD, normal peripheral pulses, 3+ systolic murmur Abdomen/GI: normal bowel sounds,some discomfort on palpating epigastrium, non tender, soft Extremities/Musculoskeletal: no calf tenderness, normal capillary refill, no pedal edema, small skin tear to right arm with ecchymosis to posterior right arm , right leg with dressing. Neurologic/Psych: alert, oriented x 3, No focal deficits Skin: normal color, warm/dry, no rash Lymphatic: no adenopathy Lab data as noted below. ASSESSMENT & PLAN: Acute Kidney Injury on CKD Stage III: Resolving. Caused by dehydration secondary to nausea, vomiting, and diarrhea from chemo Baseline Creatinine around 1.6 -Continue IVF hydration -antiemetics as needed -C.diff is negative -Follow electrolytes. -Started Full liquid diet -Avoid any Nephrotoxin. Supra-therapeutic INR: INR >8 upon admission. Likely secondary to Bactrim use, poor oral intake. Resolving now. -10mg PO Vitamin K given in ED and ordered Vitamin K 5.0 mg today. -Monitor INR daily Likely Aspiration Pneumonia: Reviewed Chest X-Ray. -Continue Zosyn for now -Incentive spirometry. -Speech evaluation -Started Reglan 10 mg every 6 hourly. Rectal Bleeding: Guaiac positive stools. -Monitoring H/H closely -Continue Protonix -Requested GI consultation Persistent Coagulopathy: Has been off Coumadin for few days now but INR remans high. ?? DIC -Ordered FFP with GI bleed. -Requested hematology/oncology consult. Hyponatremia: Resolving. Likely due to poor intake. -Continue IVFs Pancytopenia: Likely secondary to chemotherapeutic agent, -Holding Aspirin for now -Monitoring counts closely. Diabetic Right Leg Wound: Follows with Wound clinic, dressing changed by ED physician today, no surrounding cellulitis -Stopped Bactrim -Wound care nurse consult placed Chronic Myeloid Leukemia: Follows with Heme/onc in [place] -on Ponatinib daily History Atrial Fibrillation: In NSR now. -Continue B-Lani, Amiodarone -Hold Coumadin Insulin Dependent Diabetes: Stable. HbA1c is 5.6. -SSI coverage -BSG AC HS Hypothyroidism: Continue Synthroid History Hypertension: Stable -continue home medications. Code Status: LEVEL 5 DNR per my discussion with the patient upon admission. DVT Prophylaxis: Elevated INR Disposition: Discharge home once is clinically stable. Vital Signs: Date Time Temp Pulse Resp B/P Pulse Ox O2 Delivery O2 Flow Rate FiO2 09/11/16 12:19 Nasal Cannula 4.0 09/11/16 11:59 36.8 80 23 125/51 96 Nasal Cannula 4.0 09/11/16 08:19 36.5 83 27 98/70 99 4.0 09/11/16 08:01 Nasal Cannula 4.0 09/11/16 04:00 Nasal Cannula 4.0 09/11/16 02:15 36.6 90 24 137/94 96 Nasal Cannula 4.0 09/11/16 01:45 90 97 Nasal Cannula 4.0 09/11/16 01:40 106 12 187/89 87 Room Air 09/11/16 00:00 Room Air 09/10/16 23:08 37.3 91 17 139/77 96 Room Air 09/10/16 19:03 36.3 90 17 141/78 98 Room Air 09/10/16 16:59 36.4 62 18 156/77 98 Room Air 09/10/16 16:00 Room Air Lab Results: Results Past 24 Hours Test 09/10/16 17:10 09/10/16 20:23 09/11/16 01:43 09/11/16 01:50 Range/Units Bedside Glucose 132 124 117 70-99 mg/dl Creatine Kinase MB Ratio 0-3.0 Test 09/11/16 01:56 09/11/16 02:10 09/11/16 02:13 09/11/16 02:53 Range/Units White Blood Count 3.94 4.8-10.8 K/uL Red Blood Count 3.58 4.7-6.1 M/uL Hemoglobin 9.9 14.0-18.0 g/dL Hematocrit 29.2 42-52 % Mean Corpuscular Volume 81.6 80-100 fL Mean Corpuscular Hemoglobin 27.7 25-34 pg Mean Corpuscular Hemoglobin Concent 33.9 32-36 g/dl RDW Standard Deviation 59.3 36.4-46.3 fL RDW Coefficient of Variation 20.0 11.5-14.5 % Platelet Count 94 130-400 K/uL Nucleated RBC Absolute Count (auto) 0.03 0-0 K/uL Nucleated Red Blood Cells % 0.7 % Platelet Estimate DECREASED Prothrombin Time > 100.0 9.0-12.0 SECONDS Prothromb Time International Ratio > 8.0 0.9-1.1 Arterial Blood pH 7.28 7.35-7.45 Arterial Blood Partial Pressure CO2 27 35-46 mmHg Arterial Blood Partial Pressure O2 66 80-95 mm/Hg Arterial Blood HCO3 12 19-24 mmol/L Arterial Blood Oxygen Saturation 89.8 90-95 % Arterial Blood Base Excess -13.2 -9-1.8 mEq/L Arterial Blood Gas Delivery 4 L Ja Test POS POS Sodium Level 133 136-145 mmol/L Potassium Level 4.5 3.5-5.1 mmol/L Chloride Level 106 98-107 mmol/L Carbon Dioxide Level 17 21-32 mmol/L Anion Gap 10.0 3-11 mmol/L Blood Urea Nitrogen 27 7-18 mg/dl Creatinine 2.00 0.60-1.40 mg/dl Est Creatinine Clear Calc Drug Dose 36.6 ml/min Estimated GFR () 36.5 Estimated GFR (Non- 31.5 BUN/Creatinine Ratio 13.6 10-20 Random Glucose 114 70-99 mg/dl Calcium Level 7.3 8.5-10.1 mg/dl Total Creatine Kinase 68 39-308 U/L Creatine Kinase MB 1.5 0.5-3.6 ng/ml Creatine Kinase MB Ratio 2.2 0-3.0 Troponin I 0.027 0-0.045 ng/ml Stool Occult Blood POSITIVE NEGATIVE Urine Color BROWN Urine Appearance SLIGHTLY CLOUDY CLEAR Urine pH 4.5-7.5 Urine Specific [place] 1.000-1.030 Urine Protein NEG NEG Urine Glucose (UA) NEG Urine Ketones NEG Urine Occult Blood NEG Urine Nitrite NEG Urine Bilirubin NEG Urine Urobilinogen NEG Urine Leukocyte Esterase NEG Urine RBC 0-4 0-4 /hpf Urine WBC 5-10 0-5 /hpf Urine Epithelial Cells 5-10 0-5 /lpf Urine Bacteria NEG NEG Urine Hyaline Casts 1-5 0-5 /lpf Lactic Acid Level 1.9 0.4-2.0 mmol/L Test 09/11/16 05:50 09/11/16 06:35 09/11/16 11:31 09/11/16 14:00 Range/Units Hemoglobin 9.3 9.3 14.0-18.0 g/dL Hematocrit 27.5 27.8 42-52 % Prothrombin Time > 100.0 9.0-12.0 SECONDS Prothromb Time International Ratio > 8.0 0.9-1.1 Sodium Level 132 136-145 mmol/L Potassium Level 4.6 3.5-5.1 mmol/L Chloride Level 106 98-107 mmol/L Carbon Dioxide Level 15 21-32 mmol/L Anion Gap 11.0 3-11 mmol/L Blood Urea Nitrogen 30 7-18 mg/dl Creatinine 2.10 0.60-1.40 mg/dl Est Creatinine Clear Calc Drug Dose 36.1 ml/min Estimated GFR () 34.4 Estimated GFR (Non- 29.7 BUN/Creatinine Ratio 14.1 10-20 Random Glucose 149 70-99 mg/dl Calcium Level 7.2 8.5-10.1 mg/dl Amylase Level 15 25-115 U/L Lipase 21 73-393 U/L Bedside Glucose 144 147 70-99 mg/dl Test 09/11/16 14:10 09/11/16 14:33 Range/Units Microbiology Results 09/11/16 Urine Culture, Received Pending
[2016-09-11] MEDS ORDERED: PHYTONADIONE INJ 5 MG in SODIUM CHLORIDE 0.9% 50ML 50 ML IV ONE (09:30)
[2016-09-11] MEDS: METOCLOPRAMIDE HCL INJ 5 MG/ML 2 ML VIAL IV. SCH ×3 (09:51→21:05)
[2016-09-11] MEDS: DORZOLAMIDE/TIMOLOL 22.3/6.8MG/ML 10 ML BTL OPB SCH ×2 (09:52→21:06)
[2016-09-11] MEDS: INSULIN ASPART 100 UNITS/ML 3 ML PEN SC SCH ×4 (09:55→20:45)
[2016-09-11] MEDS: INSULIN GLARGINE SOLOSTAR 100 UNITS/ML 3 ML PEN SC SCH (09:56)
[2016-09-11 10:28] LABS: AMYLASE 15 U/L (25-115)
--- NOTE | 2016-09-11 12:07 | DIAGNOSTIC IMAGING REPORT ---
ULTRASOUND RIGHT UPPER QUADRANT ABDOMEN CLINICAL HISTORY: Epigastric abdominal pain. Elevated hepatic transaminases. COMPARISON STUDY: No priors. TECHNIQUE: Real-time, grayscale, and color flow sonography of the right upper quadrant of the abdomen was performed. Images are reviewed in the transverse and longitudinal planes. FINDINGS: Liver: The liver is normal in size and heterogeneous in echotexture. There is no intrahepatic biliary ductal dilatation. The main portal vein is patent. Gallbladder: The gallbladder is distended and filled with sludge and stones. There is no gallbladder wall thickening or pericholecystic fluid. A sonographic Miller's sign is reportedly absent. The common bile duct measures up to 0.6 cm in diameter. Pancreas: Not well visualized due to overlying bowel gas. Right kidney: images of the right kidney demonstrate normal size and echotexture. There is no hydronephrosis. Ascites: Trace. IMPRESSION: 1. The gallbladder is distended and fluid with sludge and probable stones. There is no clear sonographic evidence of acute cholecystitis. If there is strong clinical concern for cholecystitis consider nuclear hepatobiliary scan. 2. The liver is heterogeneous in echotexture. 3. There is trace abdominal ascites. 4. The pancreas was not visualized. Electronically signed by: Noé Guillen M.D. 09/11/2016 12:05 PM Dictated Date/Time: 09/11/2016 12:03 PM
[2016-09-11 14:25] LABS: HEMATOCRIT 27.8 % (42-52)
[2016-09-11 15:46] LABS: FIBRINOGEN* 532 mg/dl (184-400)
--- NOTE | 2016-09-11 18:31 | Medical Consult ---
Consultation Date of Consultation: Sep 11, 2016. Attending Physician: Kyler Izaguirre MD Reason for Consultation: Coagulopathy evaluation History of Present Illness Mr. 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 Baker in 2014, but ultimately has followed with Hematology [facility]. He has a past medical history of chronic myeloid leukemia diagnosed in 2007. His comorbid conditions include hypertension, type 2 diabetes, history of heart failure, SABIHA, atrial fibrillation for which he was on Coumadin, and glaucoma. He was admitted to [facility] on 09/08/2016 after he reported to the [facility] for a PT INR check. It was noted that he had scratched his arm and his arm with significantly oozing. When he reported to the ER, his INR was greater than 8. He was given 10 milligram vitamin K p.o. at that time and was admitted for further evaluation and management. He was on Bactrim for about 4 weeks prior to admission for a chronic right lower extremity wound. It was surmised that the supratherapeutic INR was related to the Bactrim. This was therefore stopped. He received a subsequent dose of vitamin K 5 milligram p.o. the following day. His coagulation labs were normalizing. On admission, he was noted to have acute kidney injury on CKD which was attributed to nausea/vomiting from the Bactrim the patient was taking for 4 weeks prior to admission. Last evening, the patient was noted to have 1 episode of bright red blood per rectum. GI evaluated the patient today and did not feel based on the patient 's current symptoms that he required further diagnostic evaluation. However, if the patient had further bloody stools they recommended to be re-contacted for the case. The patient also had an episode of hypoxia and aspiration last night. He was started on Zosyn for possible aspiration pneumonia. He has resumed 10 mg of vitamin K today for an acute rise in the PT/INR. Additional history obtained from the patient and his at bedside. The patient is not having cough, dyspnea or fever. He reports 1 episode of vomiting today after some ingestion of milk. His upper abdomen has been sore due to significant intermittent vomiting over the past 4 weeks, which was attributed to his Bactrim. His wound on his right lower extremity has been improving with the antibiotic Bactrim prior to admission, and the patient had a wound VAC up until a week ago. His last bowel was last evening, with bright red blood. His reports that he has been on ponatinib for the past 1 year, with a recent dose reduction. Past Medical/Surgical History Medical Problems: (1) Coagulopathy Status: Acute (2) Dehydration Status: Acute (3) Pneumonia Status: Acute (4) Sepsis Status: Acute (5) Thrombocytopenia Status: Acute (6) Vomiting Status: Acute Family History Cancer Diabetes mellitus Social History Smoking Status: Never Smoker Drug Use: none Marital Status: in relationship Housing Status: lives with family Occupation Status: retired Allergies Coded Allergies: No Known Allergies (Verified , 09/08/16) Current Inpatient Medications Current Inpatient Medications Medications (Trade) Dose Ordered Sig/Kristopher Route Start Time Stop Time Status Last Admin Dose Admin Acetaminophen (Tylenol Tab) 650 mg Q4H PRN PO 09/08/16 12:00 10/08/16 11:59 Future Hold Ondansetron HCl (Zofran Inj) 4 mg Q6H PRN IV 09/08/16 12:00 10/08/16 11:59 09/11/16 01:46 4 MG Amiodarone HCl (Cordarone Tab) 200 mg DAILY PO 09/09/16 08:00 10/09/16 07:59 Future Hold 09/10/16 08:32 200 MG Dorzolamide/ Timolol (Cosopt Op Soln) 1 drops BID OPB 09/08/16 20:00 10/08/16 20:59 09/11/16 09:52 1 DROPS Levothyroxine Sodium (Synthroid Tab) 50 mcg DAILYBB PO 09/09/16 06:30 10/09/16 06:29 Future Hold 09/10/16 06:15 50 MCG Metoprolol Succinate (Toprol Xl Tab) 50 mg BID PO 09/08/16 20:00 10/08/16 19:59 Future Hold 09/10/16 20:32 50 MG Insulin Glargine (Lantus Solostar Pen) 3 unit QAM SC 09/09/16 08:00 10/09/16 08:59 09/11/16 09:56 3 UNIT Insulin Aspart (novoLOG ASPART) SLIDING SCALE If C... ACHS SC 09/08/16 16:30 10/08/16 16:29 09/11/16 16:52 1 UNITS Glucose (Glucose 40% Gel) 15-30 GRAMS 15 GRAMS... UD PRN PO 09/08/16 12:30 10/08/16 12:29 Glucose (Glucose Chew Tab) 4-8 Tablets 4 Tabl... UD PRN PO 09/08/16 12:30 10/08/16 12:29 Dextrose (Dextrose 50% 50ML Syringe) 25-50ML OF 50% DW IV FOR... UD PRN IV 09/08/16 12:30 10/08/16 12:29 Glucagon (Glucagon Inj) 1 mg UD PRN SQ 09/08/16 12:30 10/08/16 12:29 Non-Formulary Medication (Non-Formulary Patient'S Own Med) 2 ea QAM PO 09/09/16 08:00 10/09/16 07:59 09/11/16 09:00 2 EA Enteral Nutritional Formula (Boost) 1 can TIDM PO 09/09/16 12:00 10/09/16 11:59 Future Hold 09/10/16 13:44 1 CAN Multi-Ingredient Ointment 1 appln 1 appln PRN PRN EXT 09/10/16 12:00 10/10/16 11:59 09/10/16 15:39 1 APPLN Piperacillin Sod/ Tazobactam Sod/ Dextrose (Zosyn Iv/D5 100ml) 115 ml @ 28.75 mls/ hr Q8H IV 09/11/16 06:00 09/18/16 05:59 09/11/16 12:38 28.75 MLS/HR Piperacillin Sod/ Tazobactam Sod 1 ea 1 ea UD PRN N/A 09/11/16 02:00 10/11/16 01:59 Pantoprazole Sodium/Dextrose (Protonix Inj/D5 100ml) 100 ml @ 20 mls/hr Q5H IV 09/11/16 02:15 10/11/16 02:14 09/11/16 16:55 20 MLS/HR Metoclopramide HCl (Reglan Inj) 10 mg Q6H IV. 09/11/16 10:00 10/11/16 09:59 09/11/16 15:04 10 MG Review of Systems Constitutional: + fatigue, No chills, No fever Respiratory: No cough, No hemoptysis, No shortness of breath, No sputum Cardiovascular: No chest pain, No palpitations Abdomen: + GI bleeding, + diarrhea, + nausea, + pain, + vomiting Genitourinary - Male: + hematuria (, has urinary catheter in place) Hematologic / Lymphatic: + abnormal bleeding/bruising Integumentary: No itch, No rash Physical Exam Date Time Temp Pulse Resp B/P Pulse Ox O2 Delivery O2 Flow Rate FiO2 09/11/16 17:30 77 20 118/53 100 4.0 09/11/16 17:15 36.7 76 20 127/50 100 4.0 09/11/16 17:04 76 18 135/60 100 4.0 09/11/16 16:48 36.6 09/11/16 16:46 76 18 105/57 97 09/11/16 16:00 92 Nasal Cannula 4.0 09/11/16 14:58 36.4 78 22 123/59 92 Nasal Cannula 4.0 09/11/16 12:19 Nasal Cannula 4.0 09/11/16 11:59 36.8 80 23 125/51 96 Nasal Cannula 4.0 09/11/16 08:19 36.5 83 27 98/70 99 4.0 09/11/16 08:01 Nasal Cannula 4.0 09/11/16 04:00 Nasal Cannula 4.0 09/11/16 02:15 36.6 90 24 137/94 96 Nasal Cannula 4.0 09/11/16 01:45 90 97 Nasal Cannula 4.0 09/11/16 01:40 106 12 187/89 87 Room Air 09/11/16 00:00 Room Air 09/10/16 23:08 37.3 91 17 139/77 96 Room Air 09/10/16 19:03 36.3 90 17 141/78 98 Room Air General Appearance: no apparent distress, + obese, + pertinent finding ( chronically ill appearing) Respiratory/Chest: lungs clear, no respiratory distress, no accessory muscle use Cardiovascular: regular rate, rhythm, no edema Abdomen/GI: normal bowel sounds, no organomegaly, + tenderness (upper quadrants and LLQ) Extremities/Musculoskelatal: no calf tenderness, no pedal edema Neurologic/Psych: oriented x 3, + pertinent finding (goggy, in and out during exam) Skin: warm/dry, no rash, + jaundice Laboratory Results 09/09/16 06:51 Red Blood Count 3.94, Mean Corpuscular Volume 82.5, Mean Corpuscular Hemoglobin 26.9, Mean Corpuscular Hemoglobin Concent 32.6, Mean Platelet Volume 10.7, Neutrophils (%) (Auto) 61.9, Lymphocytes (%) (Auto) 22.9, Monocytes (%) (Auto) 9.4, Eosinophils (%) (Auto) 5.2, Basophils (%) (Auto) 0.0, Neutrophils # (Auto) 2.24, Lymphocytes # (Auto) 0.83, Monocytes # (Auto) 0.34, Eosinophils # (Auto) 0.19, Basophils # (Auto) 0.00 09/10/16 05:25 Red Blood Count 3.52, Mean Corpuscular Volume 80.1, Mean Corpuscular Hemoglobin 27.0, Mean Corpuscular Hemoglobin Concent 33.7, Mean Platelet Volume 10.4 09/11/16 01:56 09/11/16 05:50 09/11/16 14:00 09/09/16 06:51 09/10/16 05:25 09/11/16 01:56 09/11/16 05:50 Test 09/08/16 20:54 09/09/16 06:51 09/09/16 07:41 09/09/16 11:49 Bedside Glucose 125 mg/dl (70-99) 102 mg/dl (70-99) 143 mg/dl (70-99) White Blood Count 3.62 K/uL (4.8-10.8) Red Blood Count 3.94 M/uL (4.7-6.1) Hemoglobin 10.6 g/dL (14.0-18.0) Hematocrit 32.5 % (42-52) Mean Corpuscular Volume 82.5 fL (80-100) Mean Corpuscular Hemoglobin 26.9 pg (25-34) Mean Corpuscular Hemoglobin Concent 32.6 g/dl (32-36) Platelet Count 78 K/uL (130-400) Mean Platelet Volume 10.7 fL (7.4-10.4) Neutrophils (%) (Auto) 61.9 % Lymphocytes (%) (Auto) 22.9 % Monocytes (%) (Auto) 9.4 % Eosinophils (%) (Auto) 5.2 % Basophils (%) (Auto) 0.0 % Neutrophils # (Auto) 2.24 K/uL (1.4-6.5) Lymphocytes # (Auto) 0.83 K/uL (1.2-3.4) Monocytes # (Auto) 0.34 K/uL (0.11-0.59) Eosinophils # (Auto) 0.19 K/uL (0-0.5) Basophils # (Auto) 0.00 K/uL (0-0.2) RDW Standard Deviation 59.1 fL (36.4-46.3) RDW Coefficient of Variation 19.7 % (11.5-14.5) Immature Granulocyte % (Auto) 0.6 % Immature Granulocyte # (Auto) 0.02 K/uL (0.00-0.02) Large Platelets 1+ Prothrombin Time 33.3 SECONDS (9.0-12.0) Prothromb Time International Ratio 3.0 (0.9-1.1) Activated Partial Thromboplast Time 82.6 SECONDS (21.0-31.0) Partial Thromboplastin Ratio 3.2 Anion Gap 10.0 mmol/L (3-11) Est Creatinine Clear Calc Drug Dose 43.0 ml/min Estimated GFR () 44.4 Estimated GFR (Non- 38.3 BUN/Creatinine Ratio 16.9 (10-20) Estimated Average Glucose 114 mg/dl Hemoglobin A1c 5.6 % (4.5-5.6) Calcium Level 7.4 mg/dl (8.5-10.1) Magnesium Level 2.8 mg/dl (1.8-2.4) Total Bilirubin 3.6 mg/dl (0.2-1) Aspartate Amino Transf (AST/SGOT) 27 U/L (15-37) Alanine Aminotransferase (ALT/SGPT) 23 U/L (12-78) Alkaline Phosphatase 368 U/L (45-117) Total Protein 5.8 gm/dl (6.4-8.2) Albumin 2.3 gm/dl (3.4-5.0) Globulin 3.5 gm/dl (2.5-4.0) Albumin/Globulin Ratio 0.7 (0.9-2) Test 09/09/16 16:47 09/09/16 20:03 09/10/16 05:25 09/10/16 08:07 Bedside Glucose 164 mg/dl (70-99) 131 mg/dl (70-99) 123 mg/dl (70-99) White Blood Count 2.85 K/uL (4.8-10.8) Red Blood Count 3.52 M/uL (4.7-6.1) Hemoglobin 9.5 g/dL (14.0-18.0) Hematocrit 28.2 % (42-52) Mean Corpuscular Volume 80.1 fL (80-100) Mean Corpuscular Hemoglobin 27.0 pg (25-34) Mean Corpuscular Hemoglobin Concent 33.7 g/dl (32-36) Platelet Count 69 K/uL (130-400) Mean Platelet Volume 10.4 fL (7.4-10.4) RDW Standard Deviation 57.1 fL (36.4-46.3) RDW Coefficient of Variation 19.7 % (11.5-14.5) Neutrophils % (Manual) 37.2 % Lymphocytes % (Manual) 8.8 % Monocytes % (Manual) 18.6 % Eosinophils % (Manual) 4.4 % Neutrophils # (Manual) 1.06 K/uL (1.4-6.5) Total Absolute Neutrophils 1.06 K/uL (1.4-6.5) Lymphocytes # (Manual) 0.25 K/uL (1.2-3.4) Total Absolute Lymphocytes 1.13 K/uL (1.2-3.4) Monocytes # (Manual) 0.53 K/uL (0.11-0.59) Eosinophils # (Manual) 0.13 K/uL (0-0.5) Percent Large Granular Lymphocytes 31.0 % Absolute Large Granular Lymphocytes 0.88 K/uL Blood Smear Review Prothrombin Time 49.6 SECONDS (9.0-12.0) Prothromb Time International Ratio 4.4 (0.9-1.1) Anion Gap 9.0 mmol/L (3-11) Est Creatinine Clear Calc Drug Dose 43.0 ml/min Estimated GFR () 44.4 Estimated GFR (Non- 38.3 BUN/Creatinine Ratio 15.5 (10-20) Calcium Level 7.1 mg/dl (8.5-10.1) Test 09/10/16 11:50 09/10/16 17:10 09/10/16 20:23 09/11/16 01:43 Bedside Glucose 154 mg/dl (70-99) 132 mg/dl (70-99) 124 mg/dl (70-99) 117 mg/dl (70-99) Test 09/11/16 01:50 09/11/16 01:56 09/11/16 02:10 09/11/16 02:13 Creatine Kinase MB Ratio (0-3.0) 2.2 (0-3.0) Red Blood Count 3.58 M/uL (4.7-6.1) Mean Corpuscular Volume 81.6 fL (80-100) Mean Corpuscular Hemoglobin 27.7 pg (25-34) Mean Corpuscular Hemoglobin Concent 33.9 g/dl (32-36) RDW Standard Deviation 59.3 fL (36.4-46.3) RDW Coefficient of Variation 20.0 % (11.5-14.5) Nucleated RBC Absolute Count (auto) 0.03 K/uL (0-0) Nucleated Red Blood Cells % 0.7 % Platelet Estimate DECREASED Prothrombin Time > 100.0 SECONDS Prothromb Time International Ratio > 8.0 (0.9-1.1) Arterial Blood pH 7.28 (7.35-7.45) Arterial Blood Partial Pressure CO2 27 mmHg (35-46) Arterial Blood Partial Pressure O2 66 mm/Hg (80-95) Arterial Blood HCO3 12 mmol/L (19-24) Arterial Blood Oxygen Saturation 89.8 % (90-95) Arterial Blood Base Excess -13.2 mEq/L (-9-1.8) Arterial Blood Gas Delivery 4 L Ja Test POS (POS) Anion Gap 10.0 mmol/L (3-11) Est Creatinine Clear Calc Drug Dose 36.6 ml/min Estimated GFR () 36.5 Estimated GFR (Non- 31.5 BUN/Creatinine Ratio 13.6 (10-20) Calcium Level 7.3 mg/dl (8.5-10.1) Total Creatine Kinase 68 U/L (39-308) Creatine Kinase MB 1.5 ng/ml (0.5-3.6) Troponin I 0.027 ng/ml (0-0.045) Stool Occult Blood POSITIVE (NEGATIVE) Urine Color BROWN Urine Appearance SLIGHTLY CLOUDY (CLEAR) Urine pH (4.5-7.5) Urine Specific [place] (1.000-1.030) Urine Protein NEG (NEG) Urine Glucose (UA) (NEG) Urine Ketones (NEG) Urine Occult Blood (NEG) Urine Nitrite (NEG) Urine Bilirubin (NEG) Urine Urobilinogen (NEG) Urine Leukocyte Esterase (NEG) Urine RBC 0-4 /hpf (0-4) Urine WBC 5-10 /hpf (0-5) Urine Epithelial Cells 5-10 /lpf (0-5) Urine Bacteria NEG (NEG) Urine Hyaline Casts 1-5 /lpf (0-5) Test 09/11/16 02:53 09/11/16 05:50 09/11/16 06:35 09/11/16 11:31 Lactic Acid Level 1.9 mmol/L (0.4-2.0) Prothrombin Time > 100.0 SECONDS Prothromb Time International Ratio > 8.0 (0.9-1.1) Anion Gap 11.0 mmol/L (3-11) Est Creatinine Clear Calc Drug Dose 36.1 ml/min Estimated GFR () 34.4 Estimated GFR (Non- 29.7 BUN/Creatinine Ratio 14.1 (10-20) Calcium Level 7.2 mg/dl (8.5-10.1) Amylase Level 15 U/L (25-115) Lipase 21 U/L (73-393) Bedside Glucose 144 mg/dl (70-99) 147 mg/dl (70-99) Test 09/11/16 14:10 09/11/16 14:58 09/11/16 16:09 Influenza Type A Antigen Neg for Influ A (NEG) Influenza Type B Antigen Neg for Influ B (NEG) Fibrinogen 532 mg/dl (184-400) Fibrin Degradation Products <10 mcg/ml (<10) Bedside Glucose 183 mg/dl (70-99) Date/Time Source Procedure Growth Status 09/09/16 11:10 Stool C.difficile Toxin B Gene (PCR) - Final No C. difficile toxin B gene detected Complete Chest x-ray from 09/11/2016: Left lung volume loss noted. Left pleural effusion unchanged. Could reflect chronic pleural effusion. He has an linear left lung opacity may reflect atelectasis. Cardiac size at the upper limits of normal. No evidence of pulmonary edema. Abdominal ultrasound from 09/11/2016: Liver is normal in size and heterogenous. No intrahepatic biliary ductal dilatation. Gallbladder is distended and filled with sludge and stones. Common bile duct measures up to 0.6 cm. Pancreas is not well visualized. Trace ascites. Assessment & Plan 1. Elevated PT/INR in the setting of recent administration of Coumadin (last dose per 08/29/16) and liver dysfunction (elevated total bilirubin, alkaline phosphatase) with GI bleeding (one episode last evening, one episode noted today on exam, patient had BM in bed appeared black/red) * S/p 10 mg vitamin K today * 2 units FFP ordered to be given tonight * Recheck PT/INR/PTT and mixing study with 1:1 in the AM- Dr. Izaguirre stated he would order * Current clinical picture not likely DIC, fibrinogen not decreased * If patient develops significant hemorrhage, recommend transfer urgently to [facility] * Discussed the above recommendations with Dr. Izaguirre and he was agreeable 2. GI bleed * Made Dr. Izaguirre aware that patient appears to have had a second episode of GI bleeding with BM noted in bed on exam appearing black/red * Nursing to test with stool card * He will make GI aware, as if patient had second episode, may consider for diagnostic testing * Monitor H+H regularly, at least once daily, more if patient having recurrent GI bleeding 3. Pancytopenia * Attributed to patient's CML medication- ponatinib, on hold, WBC/PLT improving 4. Possible aspiration pneumonia * Management per hospitalist team * Currently on IV Zosyn * No concern for sepsis at this time 5. Elevated total bilirubin/alkaline phosphatase * Recommend repeat LFTs, patient appearing jaundiced and has been a few days since last assay * Recommend CT of abdomen/pelvis without contrast with SYDNEY on CKD * GI to be be re-consulted I performed history and physical examination of the patient (09/11/2016). I have discussed the patient's case, impression and plan with Kate Vazquez PA-C. Her note reflects my findings and plan. In summary, he is a 76-year-old male, a known case of chronic myeloid leukemia since 2007, had received several TKI med in the past, for the last 1 year he is on Ponatinib, recently the does of Ponatinib was reduced to 30 mg per day. He is also on oral Coumadin for underlying cardiac arrhythmia had significantly elevated PT and INR so Coumadin treatment is on hold since 08/29/2016, he was on oral Bactrim antibiotic for chronic right leg infection which was recently stopped, also noticed to have worsening liver function test mainly elevated bilirubin level to 3.6 mg/dL. December rise in the alkaline phosphatase any abdominal pain, ultrasound of the liver shows distended gallbladder. Earlier he did receive oral vitamin K with slight drop in the PT, INR now once again PTand PTT are both significantly elevated, lower GI bleed present but no bleeding from IV sites, he had low platelet count earlier which has gradually improved most likely related to the ongoing treatment with Ponatinib iwhich is on hold at this time. Does not appear to be DIC. His current coagulopathy could be related to the Coumadin treatment that he received in addition to the worsening liver function test, I would like to have mixing study, oral vitamin K may not have episodes of the quite well, he did receive intravenous vitamin K on 09/11/2016, he will receive FFP, will repeat blood workup on the following day and will see how he does. Uriah Baker MD Hematology/Oncology
[2016-09-12] VITALS (11 sets, daily range): BP systolic 98–134; BP diastolic 63–92; PULSE 79–89; TEMP 36.3–37.4; O2SAT 93–100
[2016-09-12 00:17] LABS: INR 1.2 (0.9-1.1); PROTHROMBIN TIME (PATIENT) 13.2 SECONDS (9.0-12.0)
[2016-09-12] MEDS: PANTOprazole INJ 40 MG in DEXTROSE 5% 100ML IV SCH ×5 (02:24→23:09)
[2016-09-12] MEDS: METOCLOPRAMIDE HCL INJ 5 MG/ML 2 ML VIAL IV. SCH ×4 (04:00→21:59)
[2016-09-12] MEDS: PIPERACILL/TAZOBAC IV 3.375 GM in DEXTROSE 5% 100ML IV SCH ×3 (05:46→22:00)
[2016-09-12 06:05] LABS: INR 1.1 (0.9-1.1); PROTHROMBIN TIME (PATIENT) 12.1 SECONDS (9.0-12.0)
[2016-09-12 06:34] LABS: BUN/CREATININE RATIO 14.2 (10-20); CALCIUM 7.7 mg/dl (8.5-10.1); POTASSIUM 4.3 mmol/L (3.5-5.1)
[2016-09-12 06:45] LABS: HEMATOCRIT 26.4 % (42-52); MEAN CELL VOLUME 81.5 fL (80-100); MEAN CORPUSCULAR HEMOGLOBIN 28.1 pg (25-34); MEAN CORPUSCULAR HGB CONC 34.5 g/dl (32-36); MEAN PLATELET VOLUME 10.6 fL (7.4-10.4); PLATELET COUNT 52 K/uL (130-400); RED BLOOD COUNT 3.24 M/uL (4.7-6.1); WHITE BLOOD COUNT 1.87 K/uL (4.8-10.8)
[2016-09-12 07:06] LABS: ANISOCYTOSIS PRESENT; COMPLETE YES; DOHLE BODIES 2+; ECHINOCYTES 2+; EOS % 5.3 %; GIANT PLATELETS 1+; LARGE PLATELETS 2+; LYMPH % 28.3 %; LYMPH ABS # 0.53 K/uL (1.2-3.4); MONO % 28.3 %; NEUT % 38.1 %; TOXIC GRANULATION 2+
--- NOTE | 2016-09-12 07:55 | DIAGNOSTIC IMAGING REPORT ---
CHEST ONE VIEW PORTABLE CLINICAL HISTORY: Follow up aspiration pneumonia. COMPARISON STUDY: Chest radiograph September 11, 2016. FINDINGS: Left lung volume loss is noted. A small left pleural effusion is unchanged. There is interstitial thickening and basilar opacity within the left lung. Right lung is clear. Cardiomediastinal silhouette is stable. IMPRESSION: No change in left lung volume loss with a small left pleural effusion, asymmetric interstitial thickening and basilar opacity which could reflect atelectasis or consolidation. Electronically signed by: Pipo Bird M.D. 09/12/2016 7:53 AM Dictated Date/Time: 09/12/2016 7:52 AM
[2016-09-12] MEDS: DORZOLAMIDE/TIMOLOL 22.3/6.8MG/ML 10 ML BTL OPB SCH ×2 (08:07→21:59)
[2016-09-12] MEDS: ICLUSIG PO SCH (08:09)
[2016-09-12] MEDS: INSULIN GLARGINE SOLOSTAR 100 UNITS/ML 3 ML PEN SC SCH (08:15)
[2016-09-12] MEDS: INSULIN ASPART 100 UNITS/ML 3 ML PEN SC SCH ×4 (08:17→21:00)
--- NOTE | 2016-09-12 11:13 | Gastroenterology Progress Note ---
Progress Note Date of Service: Sep 12, 2016 Subjective Pt evaluation today including: conversation w/ patient, conversation w/ family , physical exam, lab review Pt was seen and evaluated this morning. He reports he has had some nausea this morning with one episode of emesis. Emesis was clear and foamy, no coffee ground emesis or hematemesis. He is having mid abdomen pain. Reports it feels like he pulled a muscle from coughing. Pain is not aggravated by BM. Pain is intermittent, dull and does not radiate. No associated symptoms. Gallbladder US 09/11/16: The gallbladder is distended and filled with sludge and stones. There is no gallbladder wall thickening or pericholecystic fluid. A sonographic Miller's sign is reportedly absent. The common bile duct measures up to 0.6 cm in diameter. Medications Current Inpatient Medications Medications (Trade) Dose Ordered Sig/Kristopher Route Start Time Stop Time Status Last Admin Dose Admin Acetaminophen (Tylenol Tab) 650 mg Q4H PRN PO 09/08/16 12:00 10/08/16 11:59 Future Hold Ondansetron HCl (Zofran Inj) 4 mg Q6H PRN IV 09/08/16 12:00 10/08/16 11:59 09/11/16 01:46 4 MG Amiodarone HCl (Cordarone Tab) 200 mg DAILY PO 09/09/16 08:00 10/09/16 07:59 Future Hold 09/10/16 08:32 200 MG Dorzolamide/ Timolol (Cosopt Op Soln) 1 drops BID OPB 09/08/16 20:00 10/08/16 20:59 09/12/16 08:07 1 DROPS Levothyroxine Sodium (Synthroid Tab) 50 mcg DAILYBB PO 09/09/16 06:30 10/09/16 06:29 Future Hold 09/10/16 06:15 50 MCG Metoprolol Succinate (Toprol Xl Tab) 50 mg BID PO 09/08/16 20:00 10/08/16 19:59 Future Hold 09/10/16 20:32 50 MG Insulin Glargine (Lantus Solostar Pen) 3 unit QAM SC 09/09/16 08:00 10/09/16 08:59 09/12/16 08:15 3 UNIT Insulin Aspart (novoLOG ASPART) SLIDING SCALE If C... ACHS SC 09/08/16 16:30 10/08/16 16:29 09/12/16 08:17 5 UNITS Glucose (Glucose 40% Gel) 15-30 GRAMS 15 GRAMS... UD PRN PO 09/08/16 12:30 10/08/16 12:29 Glucose (Glucose Chew Tab) 4-8 Tablets 4 Tabl... UD PRN PO 09/08/16 12:30 10/08/16 12:29 Dextrose (Dextrose 50% 50ML Syringe) 25-50ML OF 50% DW IV FOR... UD PRN IV 09/08/16 12:30 10/08/16 12:29 Glucagon (Glucagon Inj) 1 mg UD PRN SQ 09/08/16 12:30 10/08/16 12:29 Non-Formulary Medication (Non-Formulary Patient'S Own Med) 2 ea QAM PO 09/09/16 08:00 10/09/16 07:59 09/12/16 08:09 2 EA Enteral Nutritional Formula (Boost) 1 can TIDM PO 09/09/16 12:00 10/09/16 11:59 Future Hold 09/10/16 13:44 1 CAN Multi-Ingredient Ointment 1 appln 1 appln PRN PRN EXT 09/10/16 12:00 10/10/16 11:59 09/10/16 15:39 1 APPLN Piperacillin Sod/ Tazobactam Sod/ Dextrose (Zosyn Iv/D5 100ml) 115 ml @ 28.75 mls/ hr Q8H IV 09/11/16 06:00 09/18/16 05:59 09/12/16 05:46 28.75 MLS/HR Piperacillin Sod/ Tazobactam Sod 1 ea 1 ea UD PRN N/A 09/11/16 02:00 10/11/16 01:59 Pantoprazole Sodium/Dextrose (Protonix Inj/D5 100ml) 100 ml @ 20 mls/hr Q5H IV 09/11/16 02:15 10/11/16 02:14 09/12/16 08:02 20 MLS/HR Metoclopramide HCl (Reglan Inj) 10 mg Q6H IV. 09/11/16 10:00 10/11/16 09:59 09/12/16 09:33 10 MG Objective Vital Signs Date Time Temp Pulse Resp B/P Pulse Ox O2 Delivery O2 Flow Rate FiO2 09/12/16 08:00 Nasal Cannula 4.0 09/12/16 07:49 36.8 83 20 125/65 98 Nasal Cannula 4.0 09/12/16 04:00 Nasal Cannula 4.0 09/12/16 03:35 36.3 83 22 109/63 98 Nasal Cannula 4.0 09/12/16 02:58 80 125/69 09/12/16 01:58 79 98/68 09/12/16 01:28 80 112/67 09/12/16 01:11 36.9 81 24 110/64 100 4.0 09/12/16 00:00 Nasal Cannula 4.0 09/11/16 23:06 36.6 79 22 111/60 100 Nasal Cannula 4.0 09/11/16 20:00 Nasal Cannula 4.0 09/11/16 19:43 76 108/94 09/11/16 19:13 75 124/60 09/11/16 18:45 36.6 78 22 122/69 96 Nasal Cannula 4.0 09/11/16 18:00 36.7 76 20 105/81 100 4.0 09/11/16 17:30 77 20 118/53 100 4.0 09/11/16 17:15 36.7 76 20 127/50 100 4.0 09/11/16 17:04 76 18 135/60 100 4.0 09/11/16 16:48 36.6 09/11/16 16:46 76 18 105/57 97 09/11/16 16:00 92 Nasal Cannula 4.0 09/11/16 14:58 36.4 78 22 123/59 92 Nasal Cannula 4.0 09/11/16 12:19 Nasal Cannula 4.0 09/11/16 11:59 36.8 80 23 125/51 96 Nasal Cannula 4.0 Physical Exam General Appearance: no apparent distress Eyes: PERRL ENT: hearing grossly normal Neck: supple, trachea midline Respiratory/Chest: normal breath sounds, no respiratory distress, no accessory muscle use Abdomen: soft, no organomegaly, no pulsatile mass Neurologic/Psych: alert, normal mood/affect, oriented x 3 Skin: normal color, no rash, + jaundice Laboratory Results Last 24 Hours Test 09/11/16 11:31 09/11/16 14:00 09/11/16 14:10 09/11/16 14:58 Bedside Glucose 147 mg/dl Hemoglobin 9.3 g/dL Hematocrit 27.8 % Influenza Type A Antigen Neg for Influ A Influenza Type B Antigen Neg for Influ B Fibrinogen 532 mg/dl Fibrin Degradation Products <10 mcg/ml Test 09/11/16 16:09 09/11/16 20:23 09/11/16 22:26 09/11/16 23:58 Bedside Glucose 183 mg/dl 124 mg/dl Hemoglobin 7.7 g/dL Hematocrit 23.0 % Prothrombin Time 13.2 SECONDS Prothromb Time International Ratio 1.2 Test 09/12/16 05:04 09/12/16 06:44 09/12/16 10:47 White Blood Count 1.87 K/uL Red Blood Count 3.24 M/uL Hemoglobin 9.1 g/dL Hematocrit 26.4 % Mean Corpuscular Volume 81.5 fL Mean Corpuscular Hemoglobin 28.1 pg Mean Corpuscular Hemoglobin Concent 34.5 g/dl Platelet Count 52 K/uL Mean Platelet Volume 10.6 fL Neutrophils (%) (Auto) 38.1 % Lymphocytes (%) (Auto) 28.3 % Monocytes (%) (Auto) 28.3 % Eosinophils (%) (Auto) 5.3 % Basophils (%) (Auto) 0.0 % Neutrophils # (Auto) 0.71 K/uL Lymphocytes # (Auto) 0.53 K/uL Monocytes # (Auto) 0.53 K/uL Eosinophils # (Auto) 0.10 K/uL Basophils # (Auto) 0.00 K/uL RDW Standard Deviation 57.8 fL RDW Coefficient of Variation 19.5 % Immature Granulocyte % (Auto) 0.0 % Immature Granulocyte # (Auto) 0.00 K/uL Nucleated RBC Absolute Count (auto) 0.03 K/uL Nucleated Red Blood Cells % 1.4 % Toxic Granulation 2+ Dohle Bodies 2+ Large Platelets 2+ Giant Platelets 1+ Anisocytosis PRESENT Echinocytes 2+ Prothrombin Time 12.1 SECONDS Prothromb Time International Ratio 1.1 Sodium Level 131 mmol/L Potassium Level 4.3 mmol/L Chloride Level 106 mmol/L Carbon Dioxide Level 15 mmol/L Anion Gap 10.0 mmol/L Blood Urea Nitrogen 28 mg/dl Creatinine 2.00 mg/dl Est Creatinine Clear Calc Drug Dose 38.0 ml/min Estimated GFR () 36.5 Estimated GFR (Non- 31.5 BUN/Creatinine Ratio 14.2 Random Glucose 131 mg/dl Calcium Level 7.7 mg/dl Bedside Glucose 138 mg/dl 157 mg/dl Assessment and Plan Patient is a 76 year old male with generalized epigastric pain, nausea, elevated LFTS and one episode of BRBPR on 09/10/16 and one episode of melena on 03/20 in the setting of Coumadin toxicity. INR today is normalized at 1.1 Differentials include diverticular bleed, internal/external hemorrhoids, colon CA, ischemic colitis, upper GI bleed etc. Pt is not agreeable to a colonoscopy as he is refusing to take the prep. He is agreeable to an upper endoscopy. Plan Continue to hold Coumadin Reversed INR with Vit K IV PPI Liver panel Stool culture and stool for c.diff it loose stools develop Trend H&H Transfuse as needed Monitor stools GI ok for clear liquids today Can tentatively plan for an inpatient EGD pending serologic/respiratory status and anesthesia clearance CT abd cancelled. Repeat LFTS back with TB 12 and DB 9.5. Stat MRCP ordered. I have seen, examined and agree with the plan as outlined by GLADIS Jaime as above. -exam reveals soft abd but painful, now with increased LFT's -transaminases relatively unremarkable, but bili and AP elevated -Agree with MRCP -ABX -IF MRCP not revealing of CBD stones, then would check non-contrasted CT and hemolysis labs -Concerning that he is now neutropenic, please order blood cx as well
--- NOTE | 2016-09-12 15:25 | Hematology/Oncology Prog Note ---
Hematology/Onc Progress Note Date of Service Sep 12, 2016. Medications Medications Administered Medications (Trade) Dose Ordered Sig/Kristopher Route Start Time Stop Time Status Last Admin Dose Admin Ondansetron HCl 4 mg 4 mg NOW STAT IV 09/08/16 09:29 09/08/16 09:31 DC 09/08/16 09:52 4 MG Sodium Chloride (Nss 1000ml) 1,000 ml @ 999 mls/hr Q1H1M STAT IV 09/08/16 09:29 09/08/16 10:29 DC 09/08/16 09:50 999 MLS/HR Phytonadione (Mephyton Tab) 10 mg NOW STAT PO 09/08/16 10:55 09/08/16 10:57 DC 09/08/16 11:49 10 MG Ondansetron HCl 4 mg 4 mg Q6H PRN IV 09/08/16 12:00 10/08/16 11:59 09/11/16 01:46 4 MG Sodium Chloride (Nss 1000ml) 1,000 ml @ 75 mls/hr [id number] IV 09/08/16 14:00 09/11/16 01:50 DC 09/10/16 20:33 75 MLS/HR Amiodarone HCl (Cordarone Tab) 200 mg DAILY PO 09/09/16 08:00 10/09/16 07:59 Future Hold 09/10/16 08:32 200 MG Dorzolamide/ Timolol (Cosopt Op Soln) 1 drops BID OPB 09/08/16 20:00 10/08/16 20:59 09/12/16 08:07 1 DROPS Levothyroxine Sodium (Synthroid Tab) 50 mcg DAILYBB PO 09/09/16 06:30 10/09/16 06:29 Future Hold 09/10/16 06:15 50 MCG Metoprolol Succinate 50 mg 50 mg BID PO 09/08/16 20:00 10/08/16 19:59 Future Hold 09/10/16 20:32 50 MG Promethazine HCl/ Sodium Chloride (Phenergan Inj/ Nss 50ml) 50.5 ml @ 204 mls/hr Q6H PRN IV 09/08/16 12:00 09/11/16 09:01 DC 09/09/16 18:31 204 MLS/HR Insulin Glargine (Lantus Solostar Pen) 3 unit QAM SC 09/09/16 08:00 10/09/16 08:59 09/12/16 08:15 3 UNIT Insulin Aspart (novoLOG ASPART) SLIDING SCALE If C... ACHS SC 09/08/16 16:30 10/08/16 16:29 09/12/16 11:54 2 UNITS Non-Formulary Medication (Non-Formulary Patient'S Own Med) 2 ea QAM PO 09/09/16 08:00 10/09/16 07:59 09/12/16 08:09 2 EA Enteral Nutritional Formula (Boost) 1 can TIDM PO 09/09/16 12:00 10/09/16 11:59 Future Hold 09/10/16 13:44 1 CAN Multi-Ingredient Ointment (Eucerin Unscented Cr) 1 appln PRN PRN EXT 09/10/16 12:00 10/10/16 11:59 09/10/16 15:39 1 APPLN Phytonadione 2.5 mg 2.5 mg NOW STAT PO 09/10/16 13:00 09/10/16 13:11 DC 09/10/16 13:43 2.5 MG Sodium Chloride 1,000 ml @ 100 mls/hr Q10H IV 09/11/16 02:00 09/11/16 14:29 DC 09/11/16 02:13 80 MLS/HR Piperacillin Sod/ Tazobactam Sod 3.375 gm/Dextrose 115 ml @ 230 mls/hr NOW STAT IV 09/11/16 01:54 09/11/16 02:23 DC 09/11/16 02:10 230 MLS/HR Piperacillin Sod/ Tazobactam Sod 3.375 gm/Dextrose 115 ml @ 28.75 mls/ hr Q8H IV 09/11/16 06:00 09/18/16 05:59 09/12/16 14:29 28.75 MLS/HR Pantoprazole Sodium 80 mg/ Dextrose 120 ml @ 480 mls/hr NOW STAT IV 09/11/16 02:01 09/11/16 02:15 DC 09/11/16 02:50 480 MLS/HR Pantoprazole Sodium/Dextrose (Protonix Inj/D5 100ml) 100 ml @ 20 mls/hr Q5H IV 09/11/16 02:15 10/11/16 02:14 09/12/16 12:32 20 MLS/HR Phytonadione 5 mg 5 mg NOW STAT PO 09/11/16 03:09 09/11/16 03:30 DC 09/11/16 03:44 5 MG Phytonadione/ Sodium Chloride (Aqua-Mephyton Inj/Nss 50ml) 50.5 ml @ 101 mls/hr NOW ONCE IV 09/11/16 09:30 09/11/16 09:59 DC 09/11/16 12:39 101 MLS/HR Metoclopramide HCl (Reglan Inj) 10 mg Q6H IV. 09/11/16 10:00 10/11/16 09:59 09/12/16 09:33 10 MG Subjective The patient was seen and examined at bedside in the presence of his . He did not talk much. His reports that he has not been able to keep down any real solid or liquid today. He has not had any more GI bleeding; he had another very loose BM just prior to time of visit, noted to be on bed sheets and nurse made aware. He continues to have upper abdominal and left lower quadrant soreness, that he has attributed to vomiting. He has not had cough or dyspnea. Review of Systems: Abdomen: + see HPI Vital Signs Vital Signs Past 12 Hours Date Time Temp Pulse Resp B/P Pulse Ox O2 Delivery O2 Flow Rate FiO2 09/12/16 14:48 36.5 83 19 124/65 99 Nasal Cannula 4.0 09/12/16 12:13 36.4 85 22 130/92 100 Nasal Cannula 4.0 09/12/16 12:00 Nasal Cannula 4.0 09/12/16 08:00 Nasal Cannula 4.0 09/12/16 07:49 36.8 83 20 125/65 98 Nasal Cannula 4.0 09/12/16 04:00 Nasal Cannula 4.0 09/12/16 03:35 36.3 83 22 109/63 98 Nasal Cannula 4.0 Physical Exam Constitutional: Level of Distress: mild distress, acutely ill, chronically ill Lungs: Auscuitation: pertinent finding (coarse to auscultation bilaterally anteriorly) Abdomen: Inspection & Palpation: distended, LUQ tenderness, RUQ tenderness, LLQ tenderness Extremities: no edema Jaundice noted of face Laboratory 09/12/16 05:04 Red Blood Count 3.24, Mean Corpuscular Volume 81.5, Mean Corpuscular Hemoglobin 28.1, Mean Corpuscular Hemoglobin Concent 34.5, Mean Platelet Volume 10.6, Neutrophils (%) (Auto) 38.1, Lymphocytes (%) (Auto) 28.3, Monocytes (%) (Auto) 28.3, Eosinophils (%) (Auto) 5.3, Basophils (%) (Auto) 0.0, Neutrophils # (Auto ) 0.71, Lymphocytes # (Auto) 0.53, Monocytes # (Auto) 0.53, Eosinophils # (Auto ) 0.10, Basophils # (Auto) 0.00 09/12/16 05:04 Test 09/12/16 05:04 09/12/16 10:47 09/12/16 11:29 White Blood Count 1.87 K/uL (4.8-10.8) Red Blood Count 3.24 M/uL (4.7-6.1) Hemoglobin 9.1 g/dL (14.0-18.0) Hematocrit 26.4 % (42-52) Mean Corpuscular Volume 81.5 fL (80-100) Mean Corpuscular Hemoglobin 28.1 pg (25-34) Mean Corpuscular Hemoglobin Concent 34.5 g/dl (32-36) Platelet Count 52 K/uL (130-400) Mean Platelet Volume 10.6 fL (7.4-10.4) Neutrophils (%) (Auto) 38.1 % Lymphocytes (%) (Auto) 28.3 % Monocytes (%) (Auto) 28.3 % Eosinophils (%) (Auto) 5.3 % Basophils (%) (Auto) 0.0 % Neutrophils # (Auto) 0.71 K/uL (1.4-6.5) Lymphocytes # (Auto) 0.53 K/uL (1.2-3.4) Monocytes # (Auto) 0.53 K/uL (0.11-0.59) Eosinophils # (Auto) 0.10 K/uL (0-0.5) Basophils # (Auto) 0.00 K/uL (0-0.2) RDW Standard Deviation 57.8 fL (36.4-46.3) RDW Coefficient of Variation 19.5 % (11.5-14.5) Immature Granulocyte % (Auto) 0.0 % Immature Granulocyte # (Auto) 0.00 K/uL (0.00-0.02) Nucleated RBC Absolute Count (auto) 0.03 K/uL (0-0) Nucleated Red Blood Cells % 1.4 % Toxic Granulation 2+ Dohle Bodies 2+ Large Platelets 2+ Giant Platelets 1+ Anisocytosis PRESENT Echinocytes 2+ Prothrombin Time 12.1 SECONDS (9.0-12.0) Prothromb Time International Ratio 1.1 (0.9-1.1) Anion Gap 10.0 mmol/L (3-11) Est Creatinine Clear Calc Drug Dose 38.0 ml/min Estimated GFR () 36.5 Estimated GFR (Non- 31.5 BUN/Creatinine Ratio 14.2 (10-20) Calcium Level 7.7 mg/dl (8.5-10.1) Bedside Glucose 157 mg/dl (70-99) Total Bilirubin 12.0 mg/dl (0.2-1) Direct Bilirubin 9.5 mg/dl (0-0.2) Aspartate Amino Transf (AST/SGOT) 43 U/L (15-37) Alanine Aminotransferase (ALT/SGPT) 32 U/L (12-78) Alkaline Phosphatase 603 U/L (45-117) Total Protein 5.1 gm/dl (6.4-8.2) Albumin 2.0 gm/dl (3.4-5.0) Radiology Chest x-ray from 09/12/2016: No change in left lung volume loss with small left pleural effusion, asymmetric interstitial thickening in basilar opacity which could reflect atelectasis or consolidation. Assessment & Plan 1. Elevated PT/INR in the setting of recent administration of Coumadin (last dose per 08/29/16) and liver dysfunction (elevated total bilirubin, alkaline phosphatase) with GI bleeding (one episode 2 evenings prior, one episode yesterday) * S/p 10 mg vitamin K yesterday and 2 units FFP- PT/INR have normalized today * Recheck PT/INR/PTT daily * Dr. 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 GI bleed * No further hemorrhage noted today * Patient received 1 unit PRBC last night with increase of H+H as expected * GI aware of recurrent GI bleed- advised upper and lower endoscopy, patient only agreed to EGD, to be done tentatively tomorrrow * Monitor H+H regularly, at least once daily, more if patient having recurrent GI bleeding 3. 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 Possible aspiration pneumonia * Management per hospitalist team * Currently on IV Zosyn * No concern for sepsis at this time 5. Elevated total bilirubin/alkaline phosphatase * Recommend repeat LFTs, patient appearing jaundiced- obtained today, developed significant direct hyperbilirubinemia * GI ordering MRCP * Await results * I performed history and physical examination of the patient. I have discussed the patient's case, impression and plan with Kate Vazquez PA-C. Her note reflects my findings and plan. Also spoke wih the hospitalist about his case, advised him to stop Ponatinib. Uriah Baker MD Hematology/Oncology
--- NOTE | 2016-09-12 21:31 | Progress Note ---
Medicine Progress Note Date & Time of Visit: Sep 12, 2016 at 21:22. Subjective resting in bed, appears comfortable has been having nausea some generalized abdominal pain no chest pain, dyspnea, palpitations, dizziness no fever/chills, diarrhea no other symptoms Objective Last 8 Hrs Date Time Temp Pulse Resp B/P Pulse Ox O2 Delivery O2 Flow Rate FiO2 09/12/16 19:36 37.4 86 16 134/75 94 Nasal Cannula 4.0 09/12/16 16:00 93 Nasal Cannula 4.0 09/12/16 14:48 36.5 83 19 124/65 99 Nasal Cannula 4.0 Physical Exam: General- oriented x 3, not in distress, speaks in sentences with no effort Eyes- EOMI, (+) icterus Neck- supple, no JVD Lungs- clear to auscultation bilaterally Heart- normal rate, regular rhythm; no murmurs Abdomen- normal bowel sounds, soft, nontender Extremities- no pretibial edema, no calf tenderness Neuro- alert, oriented x 3; no gross focal deficits Skin- warm & dry Laboratory Results: Last 24 Hours Test 09/11/16 22:26 09/11/16 23:58 09/12/16 05:04 09/12/16 06:44 Hemoglobin 7.7 g/dL 9.1 g/dL Hematocrit 23.0 % 26.4 % Prothrombin Time 13.2 SECONDS 12.1 SECONDS Prothromb Time International Ratio 1.2 1.1 White Blood Count 1.87 K/uL Red Blood Count 3.24 M/uL Mean Corpuscular Volume 81.5 fL Mean Corpuscular Hemoglobin 28.1 pg Mean Corpuscular Hemoglobin Concent 34.5 g/dl Platelet Count 52 K/uL Mean Platelet Volume 10.6 fL Neutrophils (%) (Auto) 38.1 % Lymphocytes (%) (Auto) 28.3 % Monocytes (%) (Auto) 28.3 % Eosinophils (%) (Auto) 5.3 % Basophils (%) (Auto) 0.0 % Neutrophils # (Auto) 0.71 K/uL Lymphocytes # (Auto) 0.53 K/uL Monocytes # (Auto) 0.53 K/uL Eosinophils # (Auto) 0.10 K/uL Basophils # (Auto) 0.00 K/uL RDW Standard Deviation 57.8 fL RDW Coefficient of Variation 19.5 % Immature Granulocyte % (Auto) 0.0 % Immature Granulocyte # (Auto) 0.00 K/uL Nucleated RBC Absolute Count (auto) 0.03 K/uL Nucleated Red Blood Cells % 1.4 % Toxic Granulation 2+ Dohle Bodies 2+ Large Platelets 2+ Giant Platelets 1+ Anisocytosis PRESENT Echinocytes 2+ Sodium Level 131 mmol/L Potassium Level 4.3 mmol/L Chloride Level 106 mmol/L Carbon Dioxide Level 15 mmol/L Anion Gap 10.0 mmol/L Blood Urea Nitrogen 28 mg/dl Creatinine 2.00 mg/dl Est Creatinine Clear Calc Drug Dose 38.0 ml/min Estimated GFR () 36.5 Estimated GFR (Non- 31.5 BUN/Creatinine Ratio 14.2 Random Glucose 131 mg/dl Calcium Level 7.7 mg/dl Bedside Glucose 138 mg/dl Test 09/12/16 10:47 09/12/16 11:29 09/12/16 15:59 09/12/16 19:56 Bedside Glucose 157 mg/dl 141 mg/dl 136 mg/dl Total Bilirubin 12.0 mg/dl Direct Bilirubin 9.5 mg/dl Aspartate Amino Transf (AST/SGOT) 43 U/L Alanine Aminotransferase (ALT/SGPT) 32 U/L Alkaline Phosphatase 603 U/L Total Protein 5.1 gm/dl Albumin 2.0 gm/dl Assessment & Plan Direct Bilirubinemia - for MRCP today to r/o Biliary Obstruction NPO today Acute Kidney Injury on CKD Stage III: Caused by dehydration secondary to nausea, vomiting, and diarrhea from chemo Baseline Creatinine around 1.6 crea today 3.0 . HCO3 15 - 1/2 NSS with HCO3 Likely Aspiration Pneumonia - Left Lower Lobe Pneumonia -Continue Zosyn -Speech evaluation Supra-therapeutic INR: INR >8 upon admission. Likely secondary to Bactrim use, poor oral intake. -10mg PO Vitamin K given in ED and ordered Vitamin K 5.0 mg INR 1.1 Rectal Bleeding in the setting of Coagulopathy -Continue Protonix GI on board Hyponatremia: -Continue IVFs Pancytopenia: Likely secondary to chemotherapeutic agent, -Holding Ponatinib, Aspirin Hem/onc on board Diabetic Right Leg Wound: -Stopped Bactrim -Wound care nurse consult placed Chronic Myeloid Leukemia: Follows with Heme/onc in [place] -on Ponatinib daily : held for now History Atrial Fibrillation: In NSR now. -Continue B-Lani, Amiodarone -Hold Coumadin Insulin Dependent Diabetes: Stable. HbA1c is 5.6. -SSI coverage -BSG AC HS Hypothyroidism: Continue Synthroid History Hypertension: Stable -continue home medications. Code Status: LEVEL 5 DNR per my discussion with the patient upon admission. DVT Prophylaxis: anticoag contraindicated Disposition: Discharge home once is clinically stable. Current Inpatient Medications: Current Inpatient Medications Medications (Trade) Dose Ordered Sig/Kristopher Route Start Time Stop Time Status Last Admin Dose Admin Acetaminophen (Tylenol Tab) 650 mg Q4H PRN PO 09/08/16 12:00 10/08/16 11:59 Future Hold Ondansetron HCl (Zofran Inj) 4 mg Q6H PRN IV 09/08/16 12:00 10/08/16 11:59 09/11/16 01:46 4 MG Amiodarone HCl (Cordarone Tab) 200 mg DAILY PO 09/09/16 08:00 10/09/16 07:59 Future Hold 09/10/16 08:32 200 MG Dorzolamide/ Timolol (Cosopt Op Soln) 1 drops BID OPB 09/08/16 20:00 10/08/16 20:59 09/12/16 08:07 1 DROPS Levothyroxine Sodium (Synthroid Tab) 50 mcg DAILYBB PO 09/09/16 06:30 10/09/16 06:29 Future Hold 09/10/16 06:15 50 MCG Metoprolol Succinate (Toprol Xl Tab) 50 mg BID PO 09/08/16 20:00 10/08/16 19:59 Future Hold 09/10/16 20:32 50 MG Insulin Aspart (novoLOG ASPART) SLIDING SCALE If C... ACHS SC 09/08/16 16:30 10/08/16 16:29 09/12/16 16:43 1 UNITS Glucose (Glucose 40% Gel) 15-30 GRAMS 15 GRAMS... UD PRN PO 09/08/16 12:30 10/08/16 12:29 Glucose (Glucose Chew Tab) 4-8 Tablets 4 Tabl... UD PRN PO 09/08/16 12:30 10/08/16 12:29 Dextrose (Dextrose 50% 50ML Syringe) 25-50ML OF 50% DW IV FOR... UD PRN IV 09/08/16 12:30 10/08/16 12:29 Glucagon (Glucagon Inj) 1 mg UD PRN SQ 09/08/16 12:30 10/08/16 12:29 Enteral Nutritional Formula (Boost) 1 can TIDM PO 09/09/16 12:00 10/09/16 11:59 Future Hold 09/10/16 13:44 1 CAN Multi-Ingredient Ointment 1 appln 1 appln PRN PRN EXT 09/10/16 12:00 10/10/16 11:59 09/10/16 15:39 1 APPLN Piperacillin Sod/ Tazobactam Sod/ Dextrose (Zosyn Iv/D5 100ml) 115 ml @ 28.75 mls/ hr Q8H IV 09/11/16 06:00 09/18/16 05:59 09/12/16 14:29 28.75 MLS/HR Piperacillin Sod/ Tazobactam Sod 1 ea 1 ea UD PRN N/A 09/11/16 02:00 10/11/16 01:59 Pantoprazole Sodium/Dextrose (Protonix Inj/D5 100ml) 100 ml @ 20 mls/hr Q5H IV 09/11/16 02:15 10/11/16 02:14 09/12/16 16:44 20 MLS/HR Metoclopramide HCl 10 mg 10 mg Q6H IV. 09/11/16 10:00 10/11/16 09:59 09/12/16 16:35 10 MG Sodium Bicarbonate/ Sodium Chloride (Sodium Bicarbonate 8.4% Inj/1/2 Nss 1000ml) 1,075 ml @ 75 mls/hr [id number] IV 09/12/16 18:45 10/12/16 18:44
[2016-09-12] MEDS: SODIUM BICARBONATE 8.4% INJ 75 MEQ in SODIUM CHLORIDE 0.45% 1000ML 1,000 ML IV SCH (22:00)
--- NOTE | 2016-09-12 22:00 | DIAGNOSTIC IMAGING REPORT ---
MRCP HISTORY: elevated LFTs TECHNIQUE: MRCP the abdomen was performed according to standard department protocol without the use of intravenous contrast. COMPARISON STUDY: Abdominal ultrasound 09/11/2016. FINDINGS: Near nondiagnostic evaluation due to motion artifact. The common bile duct is top normal in caliber for age measuring 7 mm in diameter. No definite filling defects within the common bile duct. Main pancreatic duct is now well-visualized but does not appear to be distended. No significant intrahepatic bile duct dilatation. The spleen is diffusely hypointense. No hepatic or splenic masses. The gallbladder remains distended. No definite gallbladder wall thickening. No definite gallstones identified. Diffuse body wall and intra-abdominal edema. Small amount of ascites. A few subcentimeter T2 hyperintense lesions within the right kidney measures up to 8 mm. Pancreas is not well-visualized due to motion artifact. Possible thickening of the colon. Small bilateral pleural effusions. The left pleural effusion is partially loculated. Consolidation at the base of the left lower lobe. Fluid fluid level within the gallbladder consistent with gallbladder sludge. IMPRESSION: 1. Near nondiagnostic evaluation due to motion artifact. 2. The gallbladder remains distended. Gallbladder sludge but no definite gallstones identified. 3. Anasarca with a small amount of ascites. 4. Normal caliber common bile duct for age measuring 7 mm. No definite filling defects within the common bile duct. 5. Small bilateral pleural effusions. The left pleural effusion is loculated. 6. Possible diffuse colonic wall thickening. This may be due to the patient's diffuse edematous state. However, an infectious or inflammatory colitis could also have a similar appearance. 7. Diffusely hypointense spleen. This may represent hemosiderosis or hemachromatosis. Electronically signed by: Saqib Gutierrez M.D. 09/13/2016 8:10 AM Dictated Date/Time: 09/12/2016 9:54 PM
[2016-09-13 03:12] VITALS: BP 127/71; PULSE 88; TEMP 36.5; O2SAT 97
[2016-09-13] MEDS: METOCLOPRAMIDE HCL INJ 5 MG/ML 2 ML VIAL IV. SCH ×2 (04:36→10:40)
[2016-09-13] MEDS: PANTOprazole INJ 40 MG in DEXTROSE 5% 100ML IV SCH ×3 (04:37→14:25)
[2016-09-13] MEDS: PIPERACILL/TAZOBAC IV 3.375 GM in DEXTROSE 5% 100ML IV SCH ×2 (05:44→14:25)
[2016-09-13] MEDS: INSULIN ASPART 100 UNITS/ML 3 ML PEN SC SCH ×2 (07:00→11:00)
[2016-09-13 08:01] VITALS: BP 134/69; PULSE 93; TEMP 36.7; O2SAT 98
[2016-09-13 08:11] VITALS: O2SAT 98
--- NOTE | 2016-09-13 09:03 | Progress Note ---
Medicine Progress Note Date & Time of Visit: Sep 13, 2016 at 08:50. Subjective patient seen laying in bed, comfortable, alert, oriented states he feels about the same as yesterday no nausea today though still has hiccups mild periumbilical pain no fever/chills, dyspnea, chest pain, dizziness, palpitations no hematochezia/melena/diarrhea no other symptoms Objective Last 8 Hrs Date Time Temp Pulse Resp B/P Pulse Ox O2 Delivery O2 Flow Rate FiO2 09/13/16 08:11 98 Nasal Cannula 09/13/16 08:01 36.7 93 20 134/69 98 Nasal Cannula 09/13/16 04:00 Nasal Cannula 4.0 09/13/16 03:12 36.5 88 19 127/71 97 Nasal Cannula 2.0 Physical Exam: General- oriented x 3, not in distress, speaks in sentences with no effort Eyes- EOMI, (+) icterus Neck- no JVD Lungs- clear breath sounds bilaterally Heart- normal rate, regular rhythm; no murmurs Abdomen- normal bowel sounds,non distended, soft, mild epigastric tenderness Extremities- no pretibial edema, no calf tenderness wound on the anterior right lower leg, dressing in place, no surrounding erythema/warmth Neuro- alert, oriented x 3; no gross focal deficits Skin- warm & dry Laboratory Results: Last 24 Hours Test 09/12/16 10:47 09/12/16 11:29 09/12/16 15:59 09/12/16 19:56 Bedside Glucose 157 mg/dl 141 mg/dl 136 mg/dl Total Bilirubin 12.0 mg/dl Direct Bilirubin 9.5 mg/dl Aspartate Amino Transf (AST/SGOT) 43 U/L Alanine Aminotransferase (ALT/SGPT) 32 U/L Alkaline Phosphatase 603 U/L Total Protein 5.1 gm/dl Albumin 2.0 gm/dl Test 09/13/16 05:23 09/13/16 06:46 09/13/16 07:54 09/13/16 08:39 Total Bilirubin 11.7 mg/dl Direct Bilirubin 9.4 mg/dl Aspartate Amino Transf (AST/SGOT) 44 U/L Alanine Aminotransferase (ALT/SGPT) 32 U/L Alkaline Phosphatase 784 U/L Total Protein 4.9 gm/dl Albumin 1.9 gm/dl Bedside Glucose 123 mg/dl Assessment & Plan 76 year old male with 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 Likely secondary to Bactrim use, poor oral intake. -10mg PO Vitamin K given in ED and ordered Vitamin K 5.0 mg INR reversed to 1.1 no recurrence of bleeding wound or rectal bleeding so far Rectal Bleeding, Resolved in the setting of Coagulopathy -no recurrence with reversal of INR Hg decreased from 9 to 7, given 1 unit of pRBC, Hg stable at 9 x 2 days now GI on board: EGD recommended, patient declined colonoscopy -on Protonix drip Direct Bilirubinemia - noted 09/11/16 Total deepali increased from 1.9 to 12, Direct type Fibrinogen and Fibrin within normal limits - 09/12/16: MRCP IMPRESSION: 1. Near nondiagnostic evaluation due to motion artifact. 2. The gallbladder remains distended. Gallbladder sludge but no definite gallstones identified. 3. Anasarca with a small amount of ascites. 4. Normal caliber common bile duct for age measuring 7 mm. No definite filling defects within the common bile duct. 5. Small bilateral pleural effusions. The left pleural effusion is loculated. 6. Possible diffuse colonic wall thickening. This may be due to the patient's diffuse edematous state. However, an infectious or inflammatory colitis could also have a similar appearance. 7. Diffusely hypointense spleen. This may represent hemosiderosis or hemachromatosis. -- Direct Bilirubinemia persisting today -- patient and his significant other requesting transfer to [facility] [place] for further work up and treatment Acute Kidney Injury on CKD Stage III: - Caused by dehydration secondary to nausea, vomiting, and diarrhea from chemo Baseline Creatinine around 1.6 09/12/16: crea 2.0 . HCO3 15 - 1/2 NSS with HCO3 started - crea today 1.8 HCO3 still 15 - continue 1/2 NSS with HCO3 monitor Left Lower Lobe Pneumonia - code purple called 09/11/16 for hypoxia CXR showing possible aspiration pneumonia - started on Zosyn - repeat CXR 09/12/16 IMPRESSION: No change in left lung volume loss with a small left pleural effusion, asymmetric interstitial thickening and basilar opacity which could reflect atelectasis or consolidation. - afebrile, on 2 liters nasal cannula -Continue Zosyn Day 3 -Speech evaluation: At this time LEAD ELECTRICAL CONTROLS ENGINEER feels that pt. is WFL and is not showing any overt s/s of aspiration. Recommending resuming full liquid diet with upgrade as tolerated to be ordered by physician. 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 -Continue B-Lani, Amiodarone -Held Coumadin for rectal bleeding Insulin Dependent Diabetes: Stable. HbA1c is 5.6. -SSI coverage -BSG AC HS Hypothyroidism: Continue Synthroid History Hypertension: Stable -continue home medications. Code Status: LEVEL 5 DNR per discussion with the patient upon admission. DVT Prophylaxis: anticoag contraindicated Disposition: d/c to [facility] [place] today per Family request discussed case with Dr. Huddleston - Hospitalist who kindly accepted the patient plan of care discussed with patient and significant other Tiny and they are comfortable with plan of care Current Inpatient Medications: Current Inpatient Medications Medications (Trade) Dose Ordered Sig/Kristopher Route Start Time Stop Time Status Last Admin Dose Admin Acetaminophen (Tylenol Tab) 650 mg Q4H PRN PO 09/08/16 12:00 10/08/16 11:59 Future Hold Ondansetron HCl (Zofran Inj) 4 mg Q6H PRN IV 09/08/16 12:00 10/08/16 11:59 09/11/16 01:46 4 MG Amiodarone HCl (Cordarone Tab) 200 mg DAILY PO 09/09/16 08:00 10/09/16 07:59 Future Hold 09/10/16 08:32 200 MG Dorzolamide/ Timolol (Cosopt Op Soln) 1 drops BID OPB 09/08/16 20:00 10/08/16 20:59 09/12/16 21:59 1 DROPS Levothyroxine Sodium (Synthroid Tab) 50 mcg DAILYBB PO 09/09/16 06:30 10/09/16 06:29 Future Hold 09/10/16 06:15 50 MCG Metoprolol Succinate (Toprol Xl Tab) 50 mg BID PO 09/08/16 20:00 10/08/16 19:59 Future Hold 09/10/16 20:32 50 MG Insulin Aspart (novoLOG ASPART) SLIDING SCALE If C... ACHS SC 09/08/16 16:30 10/08/16 16:29 09/12/16 16:43 1 UNITS Glucose (Glucose 40% Gel) 15-30 GRAMS 15 GRAMS... UD PRN PO 09/08/16 12:30 10/08/16 12:29 Glucose (Glucose Chew Tab) 4-8 Tablets 4 Tabl... UD PRN PO 09/08/16 12:30 10/08/16 12:29 Dextrose (Dextrose 50% 50ML Syringe) 25-50ML OF 50% DW IV FOR... UD PRN IV 09/08/16 12:30 10/08/16 12:29 Glucagon (Glucagon Inj) 1 mg UD PRN SQ 09/08/16 12:30 10/08/16 12:29 Enteral Nutritional Formula (Boost) 1 can TIDM PO 09/09/16 12:00 10/09/16 11:59 Future Hold 09/10/16 13:44 1 CAN Multi-Ingredient Ointment 1 appln 1 appln PRN PRN EXT 09/10/16 12:00 10/10/16 11:59 09/10/16 15:39 1 APPLN Piperacillin Sod/ Tazobactam Sod/ Dextrose (Zosyn Iv/D5 100ml) 115 ml @ 28.75 mls/ hr Q8H IV 09/11/16 06:00 09/18/16 05:59 09/13/16 05:44 28.75 MLS/HR Piperacillin Sod/ Tazobactam Sod 1 ea 1 ea UD PRN N/A 09/11/16 02:00 10/11/16 01:59 Pantoprazole Sodium/Dextrose (Protonix Inj/D5 100ml) 100 ml @ 20 mls/hr Q5H IV 09/11/16 02:15 10/11/16 02:14 09/13/16 04:37 20 MLS/HR Metoclopramide HCl 10 mg 10 mg Q6H IV. 09/11/16 10:00 10/11/16 09:59 09/13/16 04:36 10 MG Sodium Bicarbonate/ Sodium Chloride (Sodium Bicarbonate 8.4% Inj// Nss 1000ml) 1,075 ml @ 75 mls/hr [id number] IV 09/12/16 18:45 10/12/16 18:44 09/12/16 22:00 75 MLS/HR
[2016-09-13] MEDS: SODIUM BICARBONATE 8.4% INJ 75 MEQ in SODIUM CHLORIDE 0.45% 1000ML 1,000 ML IV SCH (09:05)
[2016-09-13] MEDS: DORZOLAMIDE/TIMOLOL 22.3/6.8MG/ML 10 ML BTL OPB SCH (09:08)
[2016-09-13 09:26] LABS: HEMATOCRIT 27.6 % (42-52); MEAN CELL VOLUME 80.9 fL (80-100); MEAN CORPUSCULAR HEMOGLOBIN 27.9 pg (25-34); MEAN CORPUSCULAR HGB CONC 34.4 g/dl (32-36); RED BLOOD COUNT 3.41 M/uL (4.7-6.1); WHITE BLOOD COUNT 2.62 K/uL (4.8-10.8)
[2016-09-13 09:42] LABS: PLATELET COUNT 43 K/uL (130-400)
[2016-09-13 09:44] LABS: BASO % 0.4 %; BASO ABS # 0.01 K/uL (0-0.2); COMPLETE YES; DOHLE BODIES 2+; ECHINOCYTES 2+; GIANT PLATELETS 2+; IG% 0.8 %; LYMPH % 30.5 %; NEUT % 34.3 %; PLT ESTIMATE DECREASED; TOXIC GRANULATION 1+
[2016-09-13 10:27] LABS: BUN/CREATININE RATIO 14.2 (10-20); CALCIUM 7.7 mg/dl (8.5-10.1); CREATININE 1.8 mg/dl (0.60-1.40); POTASSIUM 4.1 mmol/L (3.5-5.1)
[2016-09-13 11:08] VITALS: BP 134/69; PULSE 86; TEMP 36.4; O2SAT 98
[2016-09-13] MEDS ORDERED: RGLI10 IV. (11:48)
[2016-09-13] MEDS ORDERED: NVLGIPEN SC (11:48)
--- NOTE | 2016-09-13 11:52 | Discharge Instructions ---
Discharge Instructions Date of Service Sep 13, 2016. Admission Reason for Admission: Coagulopathy, Dehydration, Thrombocytopenia, Discharge Discharge Diagnosis / Problem: DIRECT BILIRUBINEMIA, PANCYTOPENIA Discharge Goals Goal(s): Diagnostic testing, Therapeutic intervention Activity Recommendations Activity Level: Bedrest . Additional Information Patient informed of condition: Yes Advance Directives: No (UNKNOWN) DNR: Yes Level of Care: Other ([facility]) Communicable Disease: No Prognosis: Other (GUARDED) Oxygen at (LPM): 2 LITERS VIA NASAL CANNULA Hallman Catheter: Yes Instructions / Follow-Up Instructions / Follow-Up NEUTROPENIC PRECAUTIONS. PLEASE REFER TO SEPARATE MEDICAL RECONCILIATION SHEETS FOR UPDATED MEDICATION LIST. PLEASE SEE ACCOMPANYING DISCHARGE SUMMARY FOR FURTHER DETAILS. Current Hospital Diet Patient's current hospital diet: Full Liquid Diet Discharge Diet Recommended Diet: N/A (NPO FOR NOW) Procedures Procedures Performed: 2 UNITS FFP AND 1 UNIT PRBC TRANSFUSION, MRCP Pending Studies Studies pending at discharge: yes List of pending studies: PLEASE REFER TO DISCHARGE SUMMARY. Physician Orders On Transfer Special Precautions: NEUTROPENIC PRECAUTIONS. PLEASE REFER TO SEPARATE MEDICAL RECONCILIATION SHEETS FOR UPDATED MEDICATION LIST. PLEASE SEE ACCOMPANYING DISCHARGE SUMMARY FOR FURTHER DETAILS. Laboratory Results Hemoglobin A1c Test 09/09/16 06:51 Range/Units Estimated Average Glucose 114 mg/dl Hemoglobin A1c 5.6 4.5-5.6 % Medical Emergencies . Who to Call and When: Medical Emergencies: If at any time you feel your situation is an emergency, please call 911 immediately. . Non-Emergent Contact Non-Emergency issues call your: Primary Care Provider . Past History Medical & Surgical History: (1) Dehydration (2) Coagulopathy (3) Thrombocytopenia (4) Vomiting (5) CML (chronic myelocytic leukemia) (6) Paroxysmal atrial flutter (7) CKD (chronic kidney disease), stage III (8) Chronic diastolic CHF (congestive heart failure) (9) Diabetes mellitus (10) HTN (hypertension) (11) SABIHA (obstructive sleep apnea) (12) COPD, severe (13) History of total right hip replacement (14) H/O colonoscopy (15) H/O eye surgery . "Provider Documentation" section prepared by William Toledo. Core Measure Problem Core Measures: None
--- NOTE | 2016-09-13 11:56 | Discharge Summary ---
Discharge Summary Date of Service Sep 13, 2016. Discharge Summary Admission Date: Sep 08, 2016 at 11:52 Discharge Date: Sep 13, 2016 Discharge Disposition: Acute care facility ([facility]) Principal Diagnosis: Direct Bilirubinemia Secondary Diagnoses/Problems: Supra-therapeutic INR Rectal Bleeding, Resolved in the setting of Coagulopathy Acute Kidney Injury on CKD Stage III: Left Lower Lobe Pneumonia Hyponatremia Pancytopenia: Diabetic Right Leg Wound: Chronic Myeloid Leukemia History Atrial Fibrillation Insulin Dependent Diabetes: Hypothyroidism: History Hypertension: Procedures: MRCP, 2 UNITS FFP AND 1 UNIT PRBC TRANSFUSION Consultations: GI DR. CAMPBELL, ONCOLOGIST DR. FREEMAN Pending Studies/Follow-Up: PLEASE REFER TO HOSPITAL COURSE BELOW. PLEASE REFER TO SEPARATE MEDICAL RECONCILIATION SHEETS FOR UPDATED MED LIST. Medication Reconciliation New Medications: Insulin Aspart (Novolog Flexpen) 100 Units/Ml Inj 0 UNITS SC ACHS for 7 Days Metoclopramide HCl (Metoclopramide HCl) 5 Mg/Ml Inj 10 MG IV. Q6H for 7 Days Continued Medications: Amiodarone Hcl (Cordarone) 200 Mg Tab 200 MG PO QD, TAB Dorzolamide Hcl-Timolol Maleat (Cosopt Oph) 1 Mel Mel 1 DROPS OPB BID, ML Levothyroxine Sodium (Levothyroxine Sodium) 50 Mcg Tab 1 TAB PO DAILY Metoprolol Succinate (Toprol Xl) 50 Mg Tabcr 50 MG PO BID, TAB Discontinued Medications: Aspirin (Aspirin Ec) 81 Mg Tab 81 MG PO QAM Insulin Glargine (Lantus) Vial 7 UNITS SC QAM Insulin Lispro (Humalog) Inj 7 UNITS SQ UD, VIAL 10-15 units SQ with each meal as directed. Ponatinib HCl (Iclusig) 15 Mg Tab 30 MG PO QAM Prochlorperazine Maleate (Compazine) 10 Mg Tab 10 MG PO Q6H, TAB Sulfa/Trimethoprim (Bactrim Ds 800MG/160MG) Tab 1 TAB PO BID for 14 Days, #28 TAB Warfarin Sod (Jantoven) 5 Mg Tab 2.5 MG PO QAM, TAB Admission Information HPI (per Admitting provider): Patient seen and examined. 76 year old male with PMHx of CML on chemo po, CKD stgae 3, DM2, Afib on coumadin, and RLE diabetic wound presents to the ED complaining of laceration to right arm prior to arrival. Patient reports scratching his arm this morning and it began to bleed. It took a while to stop the bleeding with pressure but the bleeding did stop. The patient then noticed bruising on the right arm. He called the Coumadin clinic and they referred the patient to the ED. The patient has been having difficult times maintaining his INR between 2-3. He has been on Bactrim for about a month for his diabetic wound. He also is receiving chemo and has had significant nausea, vomiting and diarrhea also thought to be contributing to the poor control of INRs. Recently INR was as high as 9.1 Coumadin has been on hold for 4 days. He reports his urine looked red today. He has not been able to keep down much po but has been taking his medications. He denies fevers, chills, URI symptoms, chest pain, SOB , calf pain and edema. He follows with the wound clinic MWF. In the ED VS were stable, Hgb was 10, Platelets 73, INR >8, Crea 1.9 from baseline around 1.6, Na + 131. He received IVFs, zofran and po Vitamin K. He is resting comfortably. He will be admitted for further workup and treatment. Physical Exam (per Admitting): General Appearance: + pertinent finding (WD/WN 76 year old male lying in bed in NAD with family at bedside ) Head: normocephalic, atraumatic Eyes: PERRL, EOMI, sclerae normal ENT: hearing grossly normal, pharynx normal Neck: supple, no JVD Respiratory/Chest: chest non-tender, lungs clear, normal breath sounds, no respiratory distress, no accessory muscle use Cardiovascular: regular rate, rhythm, no edema, no gallop, no JVD, normal peripheral pulses, + systolic murmur (+3) Abdomen/GI: normal bowel sounds, non tender, soft Extremities/Musculoskelatal: no calf tenderness, normal capillary refill, no pedal edema, + pertinent finding (small skin tear to right arm with ecchymosis to posterior right arm, right leg with dressing i/c/d) Neurologic/Psych: alert, oriented x 3, + pertinent finding (no focal deficits ) Skin: normal color, warm/dry, no rash Lymphatic: no adenopathy Hospital Course 76 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 Supra-therapeutic INR - admitted with bleeding right arm laceration - INR >8 upon admission. Likely secondary to Bactrim use, poor oral intake. -10mg PO Vitamin K given in ED and ordered Vitamin K 5.0 mg INR reversed to 1.1 no recurrence of bleeding wound or rectal bleeding so far Rectal Bleeding, Resolved in the setting of Coagulopathy -no recurrence with reversal of INR Hg decreased from 9 to 7, given 1 unit of pRBC, Hg stable at 9 x 2 days now GI on board: EGD recommended, patient declined colonoscopy -on Protonix drip Direct Bilirubinemia - noted 09/11/16 Total deepali increased from 1.9 to 12, Direct type Fibrinogen and Fibrin within normal limits - 09/12/16: MRCP IMPRESSION: 1. Near nondiagnostic evaluation due to motion artifact. 2. The gallbladder remains distended. Gallbladder sludge but no definite gallstones identified. 3. Anasarca with a small amount of ascites. 4. Normal caliber common bile duct for age measuring 7 mm. No definite filling defects within the common bile duct. 5. Small bilateral pleural effusions. The left pleural effusion is loculated. 6. Possible diffuse colonic wall thickening. This may be due to the patient's diffuse edematous state. However, an infectious or inflammatory colitis could also have a similar appearance. 7. Diffusely hypointense spleen. This may represent hemosiderosis or hemachromatosis. -- Direct Bilirubinemia persisting today -- patient and his significant other requesting transfer to [facility] for further work up and treatment Acute Kidney Injury on CKD Stage III: - Caused by dehydration secondary to nausea, vomiting, and diarrhea from chemo Baseline Creatinine around 1.6 09/12/16: crea 2.0 . HCO3 15 - 1/2 NSS with HCO3 started - crea today 1.8 HCO3 still 15 - continue 1/2 NSS with HCO3 monitor Left Lower Lobe Pneumonia - code purple called 09/11/16 for hypoxia CXR showing possible aspiration pneumonia - started on Zosyn - repeat CXR 09/12/16 IMPRESSION: No change in left lung volume loss with a small left pleural effusion, asymmetric interstitial thickening and basilar opacity which could reflect atelectasis or consolidation. - afebrile, on 2 liters nasal cannula -Continue Zosyn Day 3 -Speech evaluation: At this time BUSINESS DEVELOPMENT REPRESENTATIVE feels that pt. is WFL and is not showing any overt s/s of aspiration. Recommending resuming full liquid diet with upgrade as tolerated to be ordered by physician. 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 -Continue B-Lani, Amiodarone -Held Coumadin for rectal bleeding Insulin Dependent Diabetes: Stable. HbA1c is 5.6. -SSI coverage -BSG AC HS Hypothyroidism: Continue Synthroid History Hypertension: Stable -continue home medications. Code Status: LEVEL 5 DNR per discussion with the patient upon admission. DVT Prophylaxis: anticoag contraindicated Disposition: d/c to [facility] today per Family request discussed case with Dr. Huddleston - Hospitalist who kindly accepted the patient plan of care discussed with patient and significant other Tiny and they are comfortable with plan of care Total time spent on discharge = 75 minutes This includes examination of the patient, discharge planning, medication reconciliation, and communication with other providers. Discharge Instructions Discharge Instructions Date of Service Sep 13, 2016. Admission Reason for Admission: Coagulopathy, Dehydration, Thrombocytopenia, Discharge Discharge Diagnosis / Problem: DIRECT BILIRUBINEMIA, PANCYTOPENIA Discharge Goals Goal(s): Diagnostic testing, Therapeutic intervention Activity Recommendations Activity Level: Bedrest . Additional Information Patient informed of condition: Yes Advance Directives: No (UNKNOWN) DNR: Yes Level of Care: Other ([facility]) Communicable Disease: No Prognosis: Other (GUARDED) Oxygen at (LPM): 2 LITERS VIA NASAL CANNULA Hallman Catheter: Yes Instructions / Follow-Up Instructions / Follow-Up NEUTROPENIC PRECAUTIONS. PLEASE REFER TO SEPARATE MEDICAL RECONCILIATION SHEETS FOR UPDATED MEDICATION LIST. PLEASE SEE ACCOMPANYING DISCHARGE SUMMARY FOR FURTHER DETAILS. Current Hospital Diet Patient's current hospital diet: Full Liquid Diet Discharge Diet Recommended Diet: N/A (NPO FOR NOW) Procedures Procedures Performed: 2 UNITS FFP AND 1 UNIT PRBC TRANSFUSION, [facility] Pending Studies Studies pending at discharge: yes List of pending studies: PLEASE REFER TO DISCHARGE SUMMARY. Physician Orders On Transfer Special Precautions: NEUTROPENIC PRECAUTIONS. PLEASE REFER TO SEPARATE MEDICAL RECONCILIATION SHEETS FOR UPDATED MEDICATION LIST. PLEASE SEE ACCOMPANYING DISCHARGE SUMMARY FOR FURTHER DETAILS. Laboratory Results Hemoglobin A1c Test 09/09/16 06:51 Range/Units Estimated Average Glucose 114 mg/dl Hemoglobin A1c 5.6 4.5-5.6 % Medical Emergencies . Who to Call and When: Medical Emergencies: If at any time you feel your situation is an emergency, please call 911 immediately. . Non-Emergent Contact Non-Emergency issues call your: Primary Care Provider . Past History Medical & Surgical History: (1) Dehydration (2) Coagulopathy (3) Thrombocytopenia (4) Vomiting (5) CML (chronic myelocytic leukemia) (6) Paroxysmal atrial flutter (7) CKD (chronic kidney disease), stage III (8) Chronic diastolic CHF (congestive heart failure) (9) Diabetes mellitus (10) HTN (hypertension) (11) SABIHA (obstructive sleep apnea) (12) COPD, severe (13) History of total right hip replacement (14) H/O colonoscopy (15) H/O eye surgery . "Provider Documentation" section prepared by William Toledo. Core Measure Problem Core Measures: None
[2016-09-13 12:00] VITALS: O2SAT 97
--- NOTE | 2016-09-13 13:18 | Gastroenterology Progress Note ---
Progress Note Date of Service: Sep 13, 2016 Subjective Pt evaluation today including: conversation w/ patient, conversation w/ family , physical exam, chart review, lab review, review of studies, review of inpatient medication list Pt denies any n/v, BMs overnight. He does have some abd pain, pointed to epigastric area. He was under the impression today he was going to have EGD eval. MRCP yesterday w motion artifact, but no signs of gallstone, CBD 7mm, no filling defect ? diffuse colonic thickening. LFTs still w elevation of Tbili and Alk phos mostly. Review of Systems Constitutional: No chills, No fever Respiratory: No cough, No shortness of breath Cardiac: No chest pain Abdomen: + pain, No diarrhea, No nausea, No vomiting Skin: + jaundice, No itch, No rash Medications Current Inpatient Medications Medications (Trade) Dose Ordered Sig/Kristopher Route Start Time Stop Time Status Last Admin Dose Admin Acetaminophen (Tylenol Tab) 650 mg Q4H PRN PO 09/08/16 12:00 10/08/16 11:59 Future Hold Ondansetron HCl (Zofran Inj) 4 mg Q6H PRN IV 09/08/16 12:00 10/08/16 11:59 09/11/16 01:46 4 MG Amiodarone HCl (Cordarone Tab) 200 mg DAILY PO 09/09/16 08:00 10/09/16 07:59 Future Hold 09/10/16 08:32 200 MG Dorzolamide/ Timolol (Cosopt Op Soln) 1 drops BID OPB 09/08/16 20:00 10/08/16 20:59 09/13/16 09:08 1 DROPS Levothyroxine Sodium (Synthroid Tab) 50 mcg DAILYBB PO 09/09/16 06:30 10/09/16 06:29 Future Hold 09/10/16 06:15 50 MCG Metoprolol Succinate (Toprol Xl Tab) 50 mg BID PO 09/08/16 20:00 10/08/16 19:59 Future Hold 09/10/16 20:32 50 MG Insulin Aspart (novoLOG ASPART) SLIDING SCALE If C... ACHS SC 09/08/16 16:30 10/08/16 16:29 09/12/16 16:43 1 UNITS Glucose (Glucose 40% Gel) 15-30 GRAMS 15 GRAMS... UD PRN PO 09/08/16 12:30 10/08/16 12:29 Glucose (Glucose Chew Tab) 4-8 Tablets 4 Tabl... UD PRN PO 09/08/16 12:30 10/08/16 12:29 Dextrose (Dextrose 50% 50ML Syringe) 25-50ML OF 50% DW IV FOR... UD PRN IV 09/08/16 12:30 10/08/16 12:29 Glucagon (Glucagon Inj) 1 mg UD PRN SQ 09/08/16 12:30 10/08/16 12:29 Enteral Nutritional Formula (Boost) 1 can TIDM PO 09/09/16 12:00 10/09/16 11:59 Future Hold 09/10/16 13:44 1 CAN Multi-Ingredient Ointment 1 appln 1 appln PRN PRN EXT 09/10/16 12:00 10/10/16 11:59 09/10/16 15:39 1 APPLN Piperacillin Sod/ Tazobactam Sod/ Dextrose (Zosyn Iv/D5 100ml) 115 ml @ 28.75 mls/ hr Q8H IV 09/11/16 06:00 09/18/16 05:59 09/13/16 05:44 28.75 MLS/HR Piperacillin Sod/ Tazobactam Sod 1 ea 1 ea UD PRN N/A 09/11/16 02:00 10/11/16 01:59 Pantoprazole Sodium/Dextrose (Protonix Inj/D5 100ml) 100 ml @ 20 mls/hr Q5H IV 09/11/16 02:15 10/11/16 02:14 09/13/16 09:05 20 MLS/HR Metoclopramide HCl 10 mg 10 mg Q6H IV. 09/11/16 10:00 10/11/16 09:59 09/13/16 10:40 10 MG Sodium Bicarbonate/ Sodium Chloride (Sodium Bicarbonate 8.4% Inj/1/2 Nss 1000ml) 1,075 ml @ 75 mls/hr [id number] IV 09/12/16 18:45 10/12/16 18:44 09/13/16 09:05 75 MLS/HR Objective Vital Signs Date Time Temp Pulse Resp B/P Pulse Ox O2 Delivery O2 Flow Rate FiO2 09/13/16 12:00 97 Nasal Cannula 2.0 09/13/16 11:08 36.4 86 22 134/69 98 Nasal Cannula 2.0 09/13/16 08:11 98 Nasal Cannula 09/13/16 08:01 36.7 93 20 134/69 98 Nasal Cannula 09/13/16 04:00 Nasal Cannula 4.0 09/13/16 03:12 36.5 88 19 127/71 97 Nasal Cannula 2.0 09/13/16 00:00 Nasal Cannula 4.0 09/12/16 22:57 36.5 89 18 126/63 97 Nasal Cannula 2.0 09/12/16 20:00 Nasal Cannula 4.0 09/12/16 19:36 37.4 86 16 134/75 94 Nasal Cannula 4.0 09/12/16 16:00 93 Nasal Cannula 4.0 09/12/16 14:48 36.5 83 19 124/65 99 Nasal Cannula 4.0 Physical Exam General Appearance: WD/WN, no apparent distress Eyes: EOMI, + pertinent finding (icteric sclera) Neck: supple, no JVD, trachea midline Respiratory/Chest: no respiratory distress, no accessory muscle use, + decreased breath sounds Cardiovascular: regular rate, rhythm, no gallop, no murmur Abdomen: soft, + tenderness (epigastric, RUQ, along L side abd) Neurologic/Psych: alert, normal mood/affect, oriented x 3 Skin: warm/dry, no rash, + jaundice Laboratory Results Last 24 Hours Test 09/12/16 15:59 09/12/16 19:56 09/13/16 05:20 09/13/16 05:23 Bedside Glucose 141 mg/dl 136 mg/dl White Blood Count 2.62 K/uL Red Blood Count 3.41 M/uL Hemoglobin 9.5 g/dL Hematocrit 27.6 % Mean Corpuscular Volume 80.9 fL Mean Corpuscular Hemoglobin 27.9 pg Mean Corpuscular Hemoglobin Concent 34.4 g/dl Platelet Count 43 K/uL Neutrophils (%) (Auto) 34.3 % Lymphocytes (%) (Auto) 30.5 % Monocytes (%) (Auto) 26.0 % Eosinophils (%) (Auto) 8.0 % Basophils (%) (Auto) 0.4 % Neutrophils # (Auto) 0.90 K/uL Lymphocytes # (Auto) 0.80 K/uL Monocytes # (Auto) 0.68 K/uL Eosinophils # (Auto) 0.21 K/uL Basophils # (Auto) 0.01 K/uL RDW Standard Deviation 58.4 fL RDW Coefficient of Variation 19.7 % Immature Granulocyte % (Auto) 0.8 % Immature Granulocyte # (Auto) 0.02 K/uL Toxic Granulation 1+ Dohle Bodies 2+ Platelet Estimate DECREASED Giant Platelets 2+ Echinocytes 2+ Total Bilirubin 11.7 mg/dl Direct Bilirubin 9.4 mg/dl Aspartate Amino Transf (AST/SGOT) 44 U/L Alanine Aminotransferase (ALT/SGPT) 32 U/L Alkaline Phosphatase 784 U/L Total Protein 4.9 gm/dl Albumin 1.9 gm/dl Test 09/13/16 06:46 09/13/16 09:30 09/13/16 10:38 09/13/16 11:44 Bedside Glucose 123 mg/dl 137 mg/dl Sodium Level 131 mmol/L Potassium Level 4.1 mmol/L Chloride Level 105 mmol/L Carbon Dioxide Level 15 mmol/L Anion Gap 11.0 mmol/L Blood Urea Nitrogen 26 mg/dl Creatinine 1.80 mg/dl Est Creatinine Clear Calc Drug Dose 42.3 ml/min Estimated GFR () 41.4 Estimated GFR (Non- 35.8 BUN/Creatinine Ratio 14.2 Random Glucose 130 mg/dl Calcium Level 7.7 mg/dl Lactate Dehydrogenase 195 U/L Assessment and Plan Patient is a 76 year old male with generalized epigastric pain, nausea, elevated LFTS and one episode of BRBPR on 09/10/16 and one episode of melena on 03/20 in the setting of Coumadin toxicity. INR is normalized at 1.1. Last colonoscopy in 2016 w signs of int hemorrhoids, diverticulosis. No more s/s of GI bleeding since 09/10-. His Hgb had improved to 9.5 after 1U PRBC yesterday and 2 FFP were also given on 09/11. He remains neutropenic w WBC 2.8 MRCP obtained yesterday w/o signs of gallstones, or filling defect. LFTs remained elevated, especially in obstructive pattern ? hemolysis going on as well. MRCP also showed diffuse colon thickening. Cdiff previously negative. - Monitor H/H, transfuse prn - Recommended CT abd/pelvis w/o contrast - Defer EGD evaluation at this time given on s/s of GI bleeeding. - Obtain hemolysis labs Addendum: Pt decided he wants to be transferred to [facility] as he's seen by heme/onc there. Thus wants to continue care there. Arrangements for transfer has been made. I have seen, examined, and agree with the plan as outlined from GLADIS Ferraro -No evidence of GI bleeding, concern that has llq pain may have a colitis with ischemic being at the top the differential, but no bleeding or diarrhea now. -I am unsure of etiology of elevated LFT's. Hemolysis, biliary obstruction (not well evidenced on MRCP) or liver dysfunction from chemo are possibilities -Agree with transfer given complicated Onc Hx and established care at [facility]
--- NOTE | 2016-09-13 16:23 | Hematology/Oncology Prog Note ---
Hematology/Onc Progress Note Date of Service Sep 13, 2016. Subjective The patient was seen and examined at bedside. He has not had any nausea or vomiting today. He had a bowel movement again last evening. He has not had cough or dyspnea. He denies itching. He has not had any further GI bleeding per his report. He continues to have upper abdominal and left lower quadrant soreness. Review of Systems: Respiratory: + see HPI Abdomen: + see HPI Vital Signs Vital Signs Past 12 Hours Date Time Temp Pulse Resp B/P Pulse Ox O2 Delivery O2 Flow Rate FiO2 09/13/16 12:00 97 Nasal Cannula 2.0 09/13/16 11:08 36.4 86 22 134/69 98 Nasal Cannula 2.0 09/13/16 08:11 98 Nasal Cannula 09/13/16 08:01 36.7 93 20 134/69 98 Nasal Cannula Physical Exam Constitutional: Level of Distress: mild distress, acutely ill, chronically ill Lungs: Auscuitation: breath sounds normal, no wheezing, no rhonchi Cardiovascular: Heart Auscultation: RRR Abdomen: Inspection & Palpation: distended, LUQ tenderness, RUQ tenderness, LLQ tenderness Extremities: edema (1+ bilateral ankles) Laboratory 09/13/16 05:20 Red Blood Count 3.41, Mean Corpuscular Volume 80.9, Mean Corpuscular Hemoglobin 27.9, Mean Corpuscular Hemoglobin Concent 34.4, Neutrophils (%) (Auto) 34.3, Lymphocytes (%) (Auto) 30.5, Monocytes (%) (Auto) 26.0, Eosinophils (%) (Auto) 8.0, Basophils (%) (Auto) 0.4, Neutrophils # (Auto) 0.90, Lymphocytes # (Auto) 0.80, Monocytes # (Auto) 0.68, Eosinophils # (Auto) 0.21, Basophils # (Auto) 0.01 09/13/16 09:30 Test 09/13/16 05:20 09/13/16 05:23 09/13/16 09:30 09/13/16 10:38 White Blood Count 2.62 K/uL (4.8-10.8) Red Blood Count 3.41 M/uL (4.7-6.1) Hemoglobin 9.5 g/dL (14.0-18.0) Hematocrit 27.6 % (42-52) Mean Corpuscular Volume 80.9 fL (80-100) Mean Corpuscular Hemoglobin 27.9 pg (25-34) Mean Corpuscular Hemoglobin Concent 34.4 g/dl (32-36) Platelet Count 43 K/uL (130-400) Neutrophils (%) (Auto) 34.3 % Lymphocytes (%) (Auto) 30.5 % Monocytes (%) (Auto) 26.0 % Eosinophils (%) (Auto) 8.0 % Basophils (%) (Auto) 0.4 % Neutrophils # (Auto) 0.90 K/uL (1.4-6.5) Lymphocytes # (Auto) 0.80 K/uL (1.2-3.4) Monocytes # (Auto) 0.68 K/uL (0.11-0.59) Eosinophils # (Auto) 0.21 K/uL (0-0.5) Basophils # (Auto) 0.01 K/uL (0-0.2) RDW Standard Deviation 58.4 fL (36.4-46.3) RDW Coefficient of Variation 19.7 % (11.5-14.5) Immature Granulocyte % (Auto) 0.8 % Immature Granulocyte # (Auto) 0.02 K/uL (0.00-0.02) Toxic Granulation 1+ Dohle Bodies 2+ Platelet Estimate DECREASED Giant Platelets 2+ Echinocytes 2+ Total Bilirubin 11.7 mg/dl (0.2-1) Direct Bilirubin 9.4 mg/dl (0-0.2) Aspartate Amino Transf (AST/SGOT) 44 U/L (15-37) Alanine Aminotransferase (ALT/SGPT) 32 U/L (12-78) Alkaline Phosphatase 784 U/L (45-117) Total Protein 4.9 gm/dl (6.4-8.2) Albumin 1.9 gm/dl (3.4-5.0) Anion Gap 11.0 mmol/L (3-11) Est Creatinine Clear Calc Drug Dose 42.3 ml/min Estimated GFR () 41.4 Estimated GFR (Non- 35.8 BUN/Creatinine Ratio 14.2 (10-20) Calcium Level 7.7 mg/dl (8.5-10.1) Lactate Dehydrogenase 195 U/L (87-241) Test 09/13/16 11:44 Bedside Glucose 137 mg/dl (70-99) Radiology MRCP from 09/12/2016: Nondiagnostic evaluation due to motion artifact. Gallbladder remains distended. Gallbladder sludge but no definite stones. Anasarca with a small amount of ascites. Normal caliber CBD for age measuring 7 mm. No definite filling defects within the CBD. Small bilateral pleural effusions. Left pleural effusion is loculated. Possible diffuse colonic wall thickening. Infectious or inflammatory colitis may have a similar appearance to his diffuse edematous state. Diffusely hypointense spleen. 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 Assessment & Plan 1. Elevated PT/INR in the setting of recent administration of Coumadin (last dose per 08/29/16) and liver dysfunction (elevated total bilirubin, alkaline phosphatase) with GI bleeding * S/p 10 mg vitamin K and 2 units FFP 2 days ago- PT/INR normalized yesterday, no recheck today of coag studies * Dr. Baker has advised likely multifactorial with affect of AC on longterm factors, acute liver dysfunction * No further hemorrhage noted today 2. 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 Possible aspiration pneumonia * Management per hospitalist team * Currently on IV Zosyn 5. Elevated total bilirubin/alkaline phosphatase * Recommend repeat LFTs, patient appearing jaundiced- obtained today, developed significant direct hyperbilirubinemia * GI ordered MRCP- non diagnostic Patient and decided after morning rounds today that he would be transferred to [facility] for further evaluation and management for direct hyperbilirubinemia I discussed his case and the management with Kate Vazquez PA-C .I did not see him on 09/13 as he was transfered at [facility]. Dr. Uriah Baker Hem/Onc
== END 2016-09-13 16:20 | disposition short-term general hospital (02) | DRG 808 ==
LOC: ENRESERVDT → ENRESERVTM → EDBD 08:45 → C.EDB 08:47 → C.4E 11:52 → C.2E 09-11 03:04
PROVIDERS: ADMIT Hospitalist; ATTEND Internal Medicine
DX: D61.810 Antineoplastic chemotherapy induced pancytopenia (principal); J69.0 Pneumonitis due to inhalation of food and vomit; C92.10 Chronic myeloid leukemia, BCR/ABL-positive, not having achieved remission; I13.0 Hypertensive heart and chronic kidney disease with heart failure and stage 1 through stage 4 chronic kidney disease, or unspecified chronic kidney disease; I50.32 Chronic diastolic (congestive) heart failure; E87.1 Hypo-osmolality and hyponatremia; N17.9 Acute kidney failure, unspecified; K62.5 Hemorrhage of anus and rectum; R17 Unspecified jaundice; I48.92 Unspecified atrial flutter; E11.22 Type 2 diabetes mellitus with diabetic chronic kidney disease; I48.91 Unspecified atrial fibrillation; Z79.01 Long term (current) use of anticoagulants; N18.3 Chronic kidney disease, stage 3 (moderate); G47.33 Obstructive sleep apnea (adult) (pediatric); Z96.641 Presence of right artificial hip joint; Z83.3 Family history of diabetes mellitus; Z80.9 Family history of malignant neoplasm, unspecified; Z79.82 Long term (current) use of aspirin; Z79.899 Other long term (current) drug therapy; Z79.4 Long term (current) use of insulin; E86.0 Dehydration; R79.1 Abnormal coagulation profile; R31.9 Hematuria, unspecified; D69.6 Thrombocytopenia, unspecified; Z66 Do not resuscitate; E03.9 Hypothyroidism, unspecified; T45.1X5A Adverse effect of antineoplastic and immunosuppressive drugs, initial encounter; R19.7 Diarrhea, unspecified; Z86.14 Personal history of Methicillin resistant Staphylococcus aureus infection; K57.30 Diverticulosis of large intestine without perforation or abscess without bleeding; K64.8 Other hemorrhoids; J44.9 Chronic obstructive pulmonary disease, unspecified; E11.628 Type 2 diabetes mellitus with other skin complications